=== PATIENT | female | born 2005 | race Caucasian/White ===

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

== ENCOUNTER 2023-01-31 02:11 | Emergency (ER) | payer MEDICAID, SELFPAY ==
[2023-01-31 02:11] VITALS: BP 107/63; PULSE 118; RESP 20; TEMP 37.5; O2SAT 99; BMI 24.5
--- NOTE | 2023-01-31 02:38 | RAD_ITS ---
INDICATION: fever EXAMINATION/TECHNIQUE: X-RAY - XR Chest 1 View COMPARISON: None. FINDINGS: LINES/DEVICES: None. LUNGS: No consolidation or evidence of an effusion. No evidence of edema or a pneumothorax. MEDIASTINUM AND CARDIOVASCULAR STRUCTURES: Cardiac silhouette is normal in size and contour. Mediastinum is unremarkable. BONES AND SOFT TISSUES: No acute abnormality. RAD/Chest 1 View (Portable) IMPRESSION: No evidence of cardiopulmonary disease. Electronically Signed: Luke Castellano DO at 4:02 EDT ,
--- NOTE | 2023-01-31 02:39 | EX.ED.DYSGE1 ---
HPI History of Present Illness Chief Complaint: Abd Pain Narrative Narrative: 17-year-old female who denies significant past medical history except for anxiety, presents with left side pain for 3 days. She states she was walking and all of a sudden she had pain in her left flank. It is worse with movement. Today/yesterday she developed fever as high as 105 point something. She states that she is taking 1 acetaminophen and 1 ibuprofen to help with pain and fever. She denies any dysuria or hematuria. Additionally, no cough or shortness of breath, but she does state that she has a stuffy nose. She is unsure as to why she has the fever but is complaining of 3 days of side pain and fever today. [facility] Medical History Anxiety Depression Home Medications acetaminophen 500 mg tablet 1,000 mg PO Q6H PRN PRN Pain 1-10 Or Fever #0 tabs 08/19/22 [Rx Last Taken Unknown] ibuprofen 600 mg tablet 600 mg PO Q6H PRN PRN Pain Score 1-3 #30 tabs 08/19/22 [Rx Last Taken Unknown] buspirone 7.5 mg tablet 7.5 mg PO DAILY PRN PRN mood stabilizer 01/31/23 [History Last Taken Unknown] lamotrigine 100 mg tablet 100 mg PO DAILY 01/31/23 [History Last Taken Unknown] Allergy/AdvReac Type Severity Reaction Status Date / Time acetaminophen [From Vicodin] AdvReac PT UNSURE Verified 08/17/22 01:00 OF REACTION hydrocodone [From Vicodin] AdvReac PT UNSURE Verified 08/17/22 01:00 OF REACTION Penicillins [PCN] AdvReac PT UNSURE Verified 08/17/22 01:00 OF REACTION Social History Smoking Status: Never smoker ROS ROS ED ROS Narrative Constitutional: Positive fever, no chills. HEENT: No sore throat. No neck pain. No loss of vision. No rhinorrhea. Nasal congestion. Cardiovascular: No chest pain. No palpitations. No pedal edema. Respiratory: No cough, no shortness of breath. Abdominal: No abdominal pain. No nausea. No vomiting. Genitourinary: No dysuria. No hematuria. Positive left flank pain, worse with movement. Musculoskeletal: No myalgias. No arthralgias. Neurologic: No headaches. No dizziness. No lightheadedness. Skin: No rash. No change in color. Psychiatric: No depression. No anxiety. EXAM Physical Exam Narrative Exam Narrative: Afebrile. Temperature 99.5 degrees, vital signs noted. HEENT: Normocephalic. Atraumatic. PERRL, EOMI. Neck soft and supple. No point tenderness or step off. Cardiovascular: Positive tachycardia no murmurs, rubs, or gallops appreciated. Respiratory: No tachypnea. Lungs clear to auscultation bilaterally. Gastrointestinal: Abdomen soft, nontender, with normoactive bowel sounds. No rebound or guarding. Neurological: Awake. Alert. Nonfocal, nonlateralizing. Skin: No rash. Normal color. No pallor. Musculoskeletal: No pedal edema. Full range of motion extremities. Const Vital Signs: 01/31/23 02:11 Temperature 99.5 F H Temperature Source Oral Pulse Rate 118 H Respiratory Rate 20 H Blood Pressure 107/63 Blood Pressure Mean 77 Pulse Ox 99 Oxygen Delivery Method Room Air MDM MDM MDM Narrative Medical decision making narrative: Suspicion is lower for ureterolithiasis, she does not have colicky pain. She is resting on the cot on her stomach, using her cellular telephone. She does have mild tachycardia and elevated temperature of 99.5. I will check a chest x-ray and a urinalysis along with a serum and baseline laboratories. I will obtain a COVID swab and influenza swab to look for signs of infection. I reviewed the patient's laboratory work she has normal white count of 8.5, hemoglobin 12.0, hematocrit 37.8, platelet count slightly low at 147 which I think is nonspecific. Potassium slightly low at 3.4, BUN normal at 9 with creatinine 0.67. Glucose is elevated at 140 but she has a normal anion gap of 5. Serum is negative. Her urinalysis is questionable with 5-10 WBCs and 10-25 RBCs. She states her flank pain has resolved. She feels well and would like to be discharged. I do not feel CT imaging is indicated currently. I will send her urine for culture as she is not having dysuria and withhold antibiotics until urine cultures return. Chest x-ray interpreted by myself shows no acute process, no pneumonia. I do not feel antibiotics are indicated for an upper respiratory infection. I reviewed her respiratory swabs and COVID and influenza are also negative. At this point in time, I am unsure as to the cause of her reported fever, but it may be an upper respiratory viral infection. I feel she can be discharged safely home with follow-up. I do not feel she requires observation. Return instructions were reviewed. Once again, I do not feel that CT of the abdomen pelvis is indicated as she is currently pain-free. Disposition is discharged home in stable condition. History & Record Review Discussion w/independent historian: Patient Additional record(s) reviewed:: Prior ED visit Lab Data Attestation: I reviewed the patient's lab results. Labs: Laboratory Results - last 24 hr 01/31/23 01/31/23 01/31/23 02:42 02:42 02:42 WBC 8.5 RBC 4.39 Hgb 12.0 Hct 37.8 MCV 86.1 MCH 27.3 MCHC 31.7 L RDW Std Deviation 42.6 RDW Coeff of [place] 13.4 Plt Count 147 L MPV 11.4 Immature Gran % (Auto) 0.500 Neut % (Auto) 84.3 H Lymph % (Auto) 5.4 L [place] % (Auto) 9.3 Eos % (Auto) 0.1 Baso % (Auto) 0.4 Absolute Neuts (auto) 7.2 Absolute Lymphs (auto) 0.46 L Nucleated RBC % 0 Differential Comment SCANNED Sodium 138 Potassium 3.4 L Chloride 105 Carbon Dioxide 28.0 Anion Gap 5 BUN 9 Creatinine 0.67 Estim Creat Clear Calc 131.33 Est GFR (MDRD) Af Amer 144 Est GFR (MDRD) Non-Af 119 BUN/Creatinine Ratio 13.4 Glucose 140 H Calcium 8.7 Serum , Qual NEGATIVE Urine Color Urine Clarity Urine pH Ur Specific [place] Urine Protein Urine Glucose (UA) Urine Ketones Urine Occult Blood Urine Nitrite Urine Bilirubin Urine Urobilinogen Ur Leukocyte Esterase Urine RBC Urine WBC Ur Squamous Epith Cells Urine Bacteria Urine Mucus 01/31/23 02:54 WBC RBC Hgb Hct MCV MCH MCHC RDW Std Deviation RDW Coeff of [place] Plt Count MPV Immature Gran % (Auto) Neut % (Auto) Lymph % (Auto) [place] % (Auto) Eos % (Auto) Baso % (Auto) Absolute Neuts (auto) Absolute Lymphs (auto) Nucleated RBC % Differential Comment Sodium Potassium Chloride Carbon Dioxide Anion Gap BUN Creatinine Estim Creat Clear Calc Est GFR (MDRD) Af Amer Est GFR (MDRD) Non-Af BUN/Creatinine Ratio Glucose Calcium Serum , Qual Urine Color Yellow Urine Clarity Sl. Cloudy Urine pH 6.5 Ur Specific [place] 1.010 Urine Protein 100 H Urine Glucose (UA) Normal Urine Ketones 15 H Urine Occult Blood 250 H Urine Nitrite Negative Urine Bilirubin Negative Urine Urobilinogen 1 H Ur Leukocyte Esterase 100 H Urine RBC 10-25 SEEN Urine WBC 5-10 SEEN Ur Squamous Epith Cells 0-5 SEEN Urine Bacteria RARE Urine Mucus 0 SEEN Radiography Diagnostic Testing: Clinical Impression(s) from Imaging Studies Chest X-Ray 01/31/23 02:38 IMPRESSION: No evidence of cardiopulmonary disease. Electronically Signed: Luke Castellano DO at 4:02 EDT Reading Location ID and State: [facility] / [place] Tel , Service support , Discharge Plan Triage Chief Complaint: Abd Pain ED Provider: Dennis Logan Dx/Rx/DC Orders Clinical Impression: Fever, Acute right flank pain Instructions: ED Fever Control (Adult), ED Pain, Acute, Uncertain Cause Prescriptions: No Action acetaminophen 500 mg Tablet 1,000 mg PO Q6H PRN PRN (Reason: Pain 1-10 Or Fever) Qty: 0 0RF ibuprofen 600 mg Tablet 600 mg PO Q6H PRN PRN (Reason: Pain Score 1-3) Qty: 30 0RF buspirone 7.5 mg tablet 7.5 mg PO DAILY PRN PRN (Reason: mood stabilizer) lamotrigine 100 mg tablet 100 mg PO DAILY Label Comments: take 1 tablet by mouth once daily Primary Care Provider: Arnel Townsend Referrals: Arnel Townsend MD [Primary Care Provider] - 3-5 Days if not improving Disposition Disposition: Home, Self Care
[2023-01-31 02:56] LABS: Absolute Lymphocyte Count 0.46 X10^3/uL (0.83-4.51); Absolute Neutrophil Count 7.2 X10^3/uL (2.0-7.7); Basophil# 0.03 X10^3/uL; Basophil% 0.4 % (0-1); Eosinophil# 0.01 X10^3/uL; Eosinophils% 0.1 % (0-5); Hematocrit 37.8 % (37-47); Lymphocyte # 0.46 X10^3/ul (0.83-4.51); Lymphocyte % 5.4 % (19-41); Mean Corp Hgb Conc 31.7 g/dL (32-36); Mean Corpuscular Hgb 27.3 pg (27.0-32.0); Mean Corpuscular Volume 86.1 fL (81-99); Mean Platelet Vol. 11.4 fl (6.2-12.0); Monocyte# 0.79 X10^3/uL; Monocyte% 9.3 % (0-10); NRBC Flagged by Analyzer 0 % (0-5); Neutrophil # 7.15 X10^3/uL (2.7-7.7); Neutrophil % 84.3 % (47-70); POSITIVE DIFFERENTIAL YES; Platelet Count 147 K/mm3 (150-450); RBC Distribution Width CV 13.4 % (11.6-14.6); RBC Distribution Width SD 42.6 fl (35.1-43.9); Red Blood Count 4.39 M/mm3 (4.2-5.4); White Blood Count 8.5 K/mm3 (4.4-11.0)
[2023-01-31 02:57] LABS: Differential Indicated SCAN CRITERIA MET
[2023-01-31 02:58] LABS: Mucous, Urine 0 SEEN /hpf (<or=2+)
[2023-01-31] MEDS: 0.9% Normal Saline 1,000 ML 1000 ML IV (03:01)
[2023-01-31 03:03] LABS: Color, Urine Yellow (Yellow); Glucose, Dipstick Normal (Normal); Ketone-Dipstick 15 mg/dl (Negative); Leukocyte Esterase-Dipstick 100 /ul (Negative); Nitrite-Dipstick Negative (Negative); Occult Blood-Urine 250 /ul (Negative); Protein-Dipstick 100 mg/dl (Negative); Urine Bilirubin Dipstick Negative (Negative); Urine Clarity Sl. Cloudy (Clear); Urine Urobilinogen 1 mg/dl (Normal); Urine pH 6.5 (5.0 - 8.0)
[2023-01-31 03:06] LABS: Anion Gap 5 (5-15); BUN 9 mg/dL (7-18); BUN/Creat Ratio 13.4 RATIO (10-20); Calcium,Total 8.7 mg/dL (8.5-10.1); Chloride 105 mmol/L (98-107); Creatinine, Serum 0.67 mg/dL (0.55-1.02); EST Glomerular Filtration Rate 119 mL/min (>60); Est Glom Filt Rate - Afr Amer 144 mL/min (>60); Estimated Creatinine Clearance 131.33 ml/min; Glucose 140 mg/dL (74-106); Potassium 3.4 mmol/L (3.5-5.1); Sodium Level 138 mmol/L (136-145)
[2023-01-31 03:16] LABS: Red Blood Cells-Urine 10-25 SEEN /hpf (0-5); Squamous Epithelial Cells - UA 0-5 SEEN /hpf (5-10); White Blood Cells 5-10 SEEN /hpf (0-5)
[2023-01-31 03:17] LABS: Bacteria RARE /hpf (None Seen)
[2023-01-31 03:24] LABS: Differential Comment SCANNED
[2023-01-31 03:25] LABS: Internal QC Validated? YES +Cl - CLEAR BKGD; Pregnancy, Serum, hCG Quali. NEGATIVE Negative
[2023-01-31 04:48] VITALS: PULSE 101; RESP 18; TEMP 37.7
== END 2023-01-31 04:50 | disposition home or self-care (01) ==
PROVIDERS: Emergency Provider Emergency Medicine; PCP Family Medicine; Visit Provider Emergency Medicine
DX: R50.9 Fever, unspecified (principal); R10.9 Unspecified abdominal pain; F41.9 Anxiety disorder, unspecified; F32.A Depression, unspecified; Z79.899 Other long term (current) drug therapy
CPT/HCPCS: 71045; 80048; 81001; 84703; 85025; 87428; 96360; 96361; 99283; J7030; A4216

== ENCOUNTER 2023-04-03 00:42 | Emergency (ER) | payer MEDICAID, SELFPAY ==
[2023-04-03 00:44] VITALS: BP 112/67; PULSE 129; RESP 16; TEMP 36.7; O2SAT 97; BMI 24.4
--- NOTE | 2023-04-03 01:10 | RAD_ITS ---
EXAM: XR LEFT ANKLE COMPLETE, 3 OR MORE VIEWS CLINICAL INDICATION: pain TECHNIQUE: Frontal, lateral and oblique views of the left ankle. COMPARISON: No relevant prior studies available. FINDINGS: BONES/JOINTS: Unremarkable. No acute fracture. No subluxation. Normal alignment. Preservation of the joint space. No sclerotic or destructive changes observed. SOFT TISSUES: Unremarkable. No soft tissue swelling or gas. No radiopaque foreign body. RAD/Ankle min 3 Views IMPRESSION: Negative left ankle x-rays. Electronically Signed: Van Ibrahim MD at 1:39 EDT ,
[2023-04-03] MEDS: Ibuprofen 600 MG Tablet PO (02:12)
--- NOTE | 2023-04-03 02:15 | EDS_ITS ---
HPI History of Present Illness Chief Complaint: Lower Extremity Injury Narrative Narrative: 17-year-old female presenting with left ankle pain is on the medial aspect. She states she fell off the counter while the police were trying to obtain her alcohol from her. States she was not sure if she will be able to ambulate on it so she had somebody help her. She denies any bruising, swelling. No history of fracture in this area before. She took nothing for pain prior to arrival. [facility] Medical History Anxiety Depression Home Medications acetaminophen 500 mg tablet 1,000 mg (2 x 500 mg) PO Q6H PRN PRN Pain 1-10 Or Fever #0 tabs 08/19/22 [Rx Last Taken Unknown] ibuprofen 600 mg tablet 600 mg PO Q6H PRN PRN Pain Score 1-3 #30 tabs 08/19/22 [Rx Last Taken Unknown] buspirone 7.5 mg tablet 7.5 mg PO DAILY PRN PRN mood stabilizer 01/31/23 [History Last Taken Unknown] lamotrigine 100 mg tablet 100 mg PO DAILY 01/31/23 [History Last Taken Unknown] Allergy/AdvReac Type Severity Reaction Status Date / Time acetaminophen [From Vicodin] AdvReac PT UNSURE Verified 04/03/23 00:44 OF REACTION hydrocodone [From Vicodin] AdvReac PT UNSURE Verified 04/03/23 00:44 OF REACTION Penicillins [PCN] AdvReac PT UNSURE Verified 04/03/23 00:44 OF REACTION Social History Smoking Status: Current every day smoker tobacco type: e-cigarettes ROS ROS ED Constitutional Constitutional ED: Denies chills, fever(s) or sweats Eyes Eyes: Denies blurry vision or change in vision ENT ENT ED: Denies ear pain or sore throat Cardiovascular Cardiovascular: Denies chest pain, palpitations or racing heartbeat Respiratory/Chest Respiratory/Chest: Denies cough, dyspnea or sputum Gastrointestinal Gastrointestinal: Denies abdominal pain, constipation, diarrhea, nausea or vomiting Genitourinary Genitourinary ED: Denies dysuria, hematuria or urinary frequency Musculoskeletal Musculoskeletal: Reports other Details: Left medial ankle pain ; Denies arthralgias, myalgias or neck pain Integumentary Denies abscess, Abrasions or rash Neurologic Neurologic: Denies headache(s), paresthesias or weakness Psychiatric Psychiatric: Denies anxiety, depression, suicidal ideation or suicidal thoughts Endocrine Endocrinology: Denies polydipsia or polyuria EXAM Physical Exam Const Vital Signs: 04/03/23 00:44 Temperature 98.1 F Temperature Source Temporal Pulse Rate 129 H Respiratory Rate 16 Blood Pressure 112/67 Blood Pressure Mean 82 Pulse Ox 97 Positive well nourished General Appearance ED: NAD HEENT Reports moist mucous membranes normocephalic and atraumatic Resp normal respiratory effort Cardio regular rate and regular rhythm Extremity Extremity Narrative: Tenderness palpation left medial malleolus. No obvious deformity, bruising, swelling, step-offs. Left foot neurovascular intact brisk refill to all 5 toes Neuro oriented x3 and CN's II-XII intact bilaterally Sensorium / Orientation: alert Motor Exam: strength 5/5 throughout Psych mental status grossly normal Skin no wounds MDM MDM MDM Narrative Medical decision making narrative: Patient with left ankle pain after falling off a counter. Differential includes ankle contusion versus ankle sprain versus ankle fracture. X-ray of the left ankle was obtained on my interpretation shows no acute fracture or subluxation. Patient states he is having pain with ambulation so I did put her in an Aircast and Ezio wrap. She does not want crutches. She is given ibuprofen in the ED and counseled on putting ibuprofen and Tylenol on outpatient setting. She is also to use ice and elevation. Return precautions discussed. Impression: 1. Mechanical fall 2. Left ankle contusion Radiography Diagnostic Testing: Clinical Impression(s) from Imaging Studies Ankle X-Ray 04/03/23 01:10 IMPRESSION: Negative left ankle x-rays. Electronically Signed: Van Ibrahim MD at 1:39 EDT , Discharge Plan Triage Chief Complaint: Lower Extremity Injury ED Provider: Hill Corona Dx/Rx/DC Orders Instructions: ED Contusion, Lower Extremity Prescriptions: No Action acetaminophen 500 mg Tablet 1,000 mg PO Q6H PRN PRN (Reason: Pain 1-10 Or Fever) Qty: 0 0RF ibuprofen 600 mg Tablet 600 mg PO Q6H PRN PRN (Reason: Pain Score 1-3) Qty: 30 0RF buspirone 7.5 mg tablet 7.5 mg PO DAILY PRN PRN (Reason: mood stabilizer) lamotrigine 100 mg tablet 100 mg PO DAILY Patient Comments: take 1 tablet by mouth once daily Primary Care Provider: Arnel Townsend Referrals: Arnel Townsend MD [Primary Care Provider] - Disposition Disposition: Home, Self Care Discharge Date/Time: 04/03/23 02:22
== END 2023-04-03 02:22 | disposition home or self-care (01) ==
PROVIDERS: Emergency Provider Student in an Organized Health Care Education/Training Program; PCP Family Medicine; Visit Provider Student in an Organized Health Care Education/Training Program
DX: S90.02XA Contusion of left ankle, initial encounter (principal); F17.290 Nicotine dependence, other tobacco product, uncomplicated; W19.XXXA Unspecified fall, initial encounter
CPT/HCPCS: 73610; 99283

== ENCOUNTER 2023-05-08 10:28 | Emergency (ER) | payer MEDICAID, SELFPAY ==
[2023-05-08 10:29] VITALS: BP 114/76; PULSE 95; RESP 14; TEMP 36.2; O2SAT 100; BMI 24.5
--- NOTE | 2023-05-08 10:59 | ED.RN ---
PT WAS YELLING AT MD PHYSICIAN. PT RUDE AND SWEARING. PT THEN WALKS OUT OF DEPARTMENT
--- NOTE | 2023-05-08 11:03 | EX.ED.DYSGE1 ---
HPI History of Present Illness Chief Complaint: Abd Pain Informant: patient Narrative Narrative: 17-year-old female presenting to the emergency room chief complaint of dizziness. Patient states for the past 2 weeks she is felt dizzy. She states that her mom was feeling her abdomen last night and found a heart rate in the 230s. She notes that she has been experiencing lower abdominal discomfort. Home test was negative. She states that this is the second time that has happened. When asked what dizziness means to her she states she cannot describe it. She denies a sense of spinning. She states that 2 weeks ago she had her Abilify increased. When asked direct questions to clarify the vague symptoms, the patient becomes increasingly agitated begins to curse. I asked her to please stop cursing at me and she stops but then begins to yell. I informed her that I would give her 5 minutes to collect herself and I be back to finish the evaluation. PFSH PFS Medical History Anxiety Depression Home Medications acetaminophen 500 mg tablet 1,000 mg (2 x 500 mg) PO Q6H PRN PRN Pain 1-10 Or Fever #0 tabs 08/19/22 [Rx Last Taken Unknown] ibuprofen 600 mg tablet 600 mg PO Q6H PRN PRN Pain Score 1-3 #30 tabs 08/19/22 [Rx Last Taken Unknown] buspirone 7.5 mg tablet 7.5 mg PO DAILY PRN PRN mood stabilizer 01/31/23 [History Last Taken Unknown] lamotrigine 100 mg tablet 100 mg PO DAILY 01/31/23 [History Last Taken Unknown] Allergy/AdvReac Type Severity Reaction Status Date / Time acetaminophen [From Vicodin] AdvReac PT UNSURE Verified 05/08/23 10:28 OF REACTION hydrocodone [From Vicodin] AdvReac PT UNSURE Verified 05/08/23 10:28 OF REACTION Penicillins [PCN] AdvReac PT UNSURE Verified 05/08/23 10:28 OF REACTION Social History Smoking Status: Former smoker ROS ROS ED Constitutional Constitutional ED: Denies chills or weight loss Eyes Eyes: Denies change in vision or diplopia ENT ENT ED: Denies ear pain, rhinorrhea or sore throat Cardiovascular Cardiovascular: Denies chest pain, orthopnea, palpitations or racing heartbeat Respiratory/Chest Respiratory/Chest: Denies cough, dyspnea or orthopnea Gastrointestinal Gastrointestinal: Reports abdominal pain and nausea; Denies diarrhea or vomiting Genitourinary Genitourinary ED: Denies dysuria, hematuria or urinary frequency Musculoskeletal Musculoskeletal: Denies arthralgias or myalgias Integumentary Denies abscess or rash Neurologic Neurologic: Reports other Details: Dizziness ; Denies headache(s), paresthesias or weakness Psychiatric Psychiatric: Denies anxiety, depression, suicidal ideation or suicidal thoughts Endocrine Endocrinology: Denies polydipsia, polyphagia or polyuria Allergic/Immunologic Allergic/Immunologic ED: Denies mouth swelling, tongue swelling or urticaria EXAM Physical Exam Const Vital Signs: 05/08/23 10:29 Temperature 97.1 F L Temperature Source Temporal Pulse Rate 95 Respiratory Rate 14 Blood Pressure 114/76 Blood Pressure Mean 88 Pulse Ox 100 Oxygen Delivery Method Room Air Positive well nourished and well developed General Appearance ED: well developed HEENT Reports normocephalic, head/scalp atraumatic and moist mucous membranes Eyes PERRL and EOMs intact bilaterally Neck Neck Narrative: Normal range of motion Resp normal respiratory effort GI Inspection: Negative for abdominal distention Back/Spine normal ROM Extremity normal to inspection General Extremety ED: Negative for edema General Extremity: Negative for edema Neuro oriented x3 and CN's II-XII intact bilaterally Sensorium / Orientation: alert Motor Exam: strength 5/5 throughout Psych Psych Narrative: Patient is angry cursing and yelling Attitude: agitated Mood & Affect: Negative for depressed or tearful Skin no rashes or lesions noted and no wounds MDM MDM MDM Narrative Medical decision making narrative: After I left the room to give the patient a few minutes to collect her thoughts and calm down she was observed leaving the emergency department dressed with her and baby. She stated that she is leaving because nobody will give her 5 minutes. Discharge Plan Triage Chief Complaint: Abd Pain Other Complaint: Dizziness ED Provider: Bernard Cunningham Dx/Rx/DC Orders Clinical Impression: Dizziness, Abdominal pain Prescriptions: No Action acetaminophen 500 mg Tablet 1,000 mg PO Q6H PRN PRN (Reason: Pain 1-10 Or Fever) Qty: 0 0RF ibuprofen 600 mg Tablet 600 mg PO Q6H PRN PRN (Reason: Pain Score 1-3) Qty: 30 0RF buspirone 7.5 mg tablet 7.5 mg PO DAILY PRN PRN (Reason: mood stabilizer) lamotrigine 100 mg tablet 100 mg PO DAILY Patient Comments: take 1 tablet by mouth once daily Primary Care Provider: Arnel Townsend Referrals: Arnel Townsend MD [Primary Care Provider] - Disposition Disposition: Elopement
--- NOTE | 2023-05-08 11:03 | ED.RN ---
Patient verbally abusive to staff and demanding with testing she would like to have completed. Patient concerned about her heartbeat in my stomach . Educated on anatomy of the human body and that this finding is normal. Patient verbalized understanding. States she is unable to make regular Dr. appointments due to the fact she cannot drive and is unable to go because she has no way there. Her and parents work and cannot take her.
--- NOTE | 2023-05-08 11:14 | ED.RN ---
Patient yelling out and rude with staff. Patient chose to leave AMA.Ambulatory from dept., gait steady.
--- OUTSIDE RECORDS SUMMARY | 2023-08-18 12:05 | XMS RPT_ITS | CCD ---
Author Name Unknown Address [address] [facility] [address] [place] [address] Organization [facility] Care Team Providers Care Test Deskman Name Role Phone Arnel Falcon Primary Care Provider Pawan Lopes MD Primary Care Provider ARNEL FALCON Primary Care Unavailabl e Unavailable Primary Care Provider Unavailabl e Unavailable Primary Care Provider Unavailabl e Unavailable Primary Care Provider Unavailabl e Kristian GRAY, Arnel Zhang Primary Care Provider ZANDER SALGADO Attending Unavailable ARNEL FALCON Primary Care Unavailable [...] Drug Allergy 10-23-19 21 Other (See Comments) [facility] (20 sources) Acetaminophen / HYDROcodone; Translations: [HYDROCODONE-ACET AMINOPHEN] Drug Allergy 05-30-20 20 Other: See Comments, Anaphylaxis, Other [place], [place] (3 sources) Penicillins; Translations: [PENICILLINS] Propensity to adverse reactions to drug 05-30-20 20 [place] (2 sources) Amoxicill-Clarith ro-Lansopraz Propensity to adverse reactions to drug 05-30-20 [place] (20 sources) traMADol; Translations: [TRAMADOL] Drug Allergy 09-02-19 Other: See Comments, Anaphylaxis, Other [place] (5 sources) Penicillins Drug Allergy 05-29-[address] [facility] (20 sources) Penicillins Drug Allergy 05-29-20 Unknown, GI Upset [facility] (5 sources) Penicillins Drug Allergy 05-30-20 Anaphylaxis, Unknown [facility] (5 sources) Amoxicil &Clarithro &Lansopraz Drug Intolerance 05-30-20 Anaphylaxis [facility] (4 sources) Acetaminophen Drug Allergy 04-03-20 [facility] Medications Current Medications Medication Drug Class(es) Dates [...] weight 73.94 kg Nurse Shanell Work Phone: [facility] 06-09-2023 16:09-0400 Diastolic blood pressure 60 mm[Hg] Nurse tr Work Phone: [facility] 06-09-2023 16:09-0400 Systolic blood pressure 100 mm[Hg] Nurse tr Work Phone: [facility] 04-05-2023 08:59-0400 Body mass index (BMI) [Ratio] 25.12 kg/m2 Zander Salgado ELECTRICAL CAD DESIGNER - PRODUCT BUILDER Work Phone: [facility] 04-05-2023 08:59-0400 Body temperature 98.91 [degF] Zander Salgado ELECTRICAL CAD DESIGNER - PRODUCT BUILDER Work Phone: [facility] 04-05-2023 08:59-0400 Body weight 71.67 kg Zander Bridenthal ELECTRICAL CAD DESIGNER - PRODUCT BUILDER Work Phone: [facility] [employer] 04-05-2023 08:59-0400 Diastolic blood pressure 68 mm[Hg] Zander Bridenthal ELECTRICAL CAD DESIGNER - PRODUCT BUILDER Work Phone: [facility] [employer] 04-05-2023 08:59-0400 Heart rate 89 /min Zander Bridenthal ELECTRICAL CAD DESIGNER - PRODUCT BUILDER Work Phone: [facility] [employer] 04-05-2023 08:59-0400 Respiratory rate 24 /min Zander Bridenthal ELECTRICAL CAD DESIGNER - PRODUCT BUILDER Work Phone: [facility] [employer] 04-05-2023 08:59-0400 SaO2% (BldA) [Mass fraction] 99 % Zander Bridenthal ELECTRICAL CAD DESIGNER - PRODUCT BUILDER Work Phone: [facility] [employer] 04-05-2023 08:59-0400 Systolic blood pressure 104 mm[Hg] Znader Bridenthal ELECTRICAL CAD DESIGNER - PRODUCT BUILDER Work Phone: [facility] 03-17-2023 16:21-0400 Body weight 68.95 kg Nurse Wstr Work Phone: [facility] 03-17-2023 16:21-0400 Diastolic blood pressure 62 mm[Hg] Nurse Wstr Work Phone: [facility] 03-17-2023 16:21-0400 Systolic blood pressure 110 mm[Hg] Nurse Wstr Work Phone: [facility] 11-03-2022 13:46-0400 Body weight 68.13 kg Loan Vega ELECTRICAL CAD DESIGNER.CNM Work Phone: [facility] 11-03-2022 13:46-0400 Diastolic blood pressure 62 mm[Hg] Loan Riversts ELECTRICAL CAD DESIGNER.CNM Work Phone: [facility] 11-03-2022 13:46-0400 Systolic blood pressure 108 mm[Hg] Loan Riversts ELECTRICAL CAD DESIGNER.CNM Work Phone: [facility] 09-22-2022 16:25-0500 Body weight 70.31 kg Michael Mejia MD Work Phone: [facility] 09-22-2022 16:25-0500 Diastolic blood pressure 62 mm[Hg] Michael Mejia MD Work Phone: [facility] 09-22-2022 16:25-0500 Systolic blood pressure 100 mm[Hg] Michael Mejia MD Work Phone: [facility] 08-24-2022 16:54-0500 Body weight 69.4 kg Loan Plotts ELECTRICAL CAD DESIGNER.CNM Work Phone: [facility] 08-24-2022 16:54-0500 Diastolic blood pressure 82 mm[Hg] Loan Plotts ELECTRICAL CAD DESIGNER.CNM Work Phone: [facility] 08-24-2022 16:54-0500 Systolic blood pressure 110 mm[Hg] Loan Plotts ELECTRICAL CAD DESIGNER.CNM Work Phone: [facility] 08-14-2022 15:25-0500 Body weight 76.2 kg Mirian Dick ELECTRICAL CAD DESIGNER.CNM Work Phone: [facility] 08-14-2022 15:25-0500 Diastolic blood pressure 66 mm[Hg] Mirian Dick ELECTRICAL CAD DESIGNER.CNM Work Phone: [facility] 08-14-2022 15:25-0500 Systolic blood pressure 110 mm[Hg] Mirian Dick ELECTRICAL CAD DESIGNER.CNM Work Phone: [facility] 08-06-2022 15:15-0500 Body weight 75.98 kg Addie Montenegro MD Work Phone: [facility] 08-06-2022 15:15-0500 Diastolic blood pressure 68 mm[Hg] Addie Montenegro MD Work Phone: [facility] 08-06-2022 15:15-0500 Systolic blood pressure 102 mm[Hg] Addie Montenegro MD Work Phone: [facility] 07-31-2022 16:37-0500 Body weight 75.75 kg Marilee Mayorga MD Work Phone: [facility] 07-31-2022 16:37-0500 Diastolic blood pressure 70 mm[Hg] Marilee Mayorga MD Work Phone: [facility] 07-31-2022 16:37-0500 Systolic blood pressure 116 mm[Hg] Marilee Mayorga MD Work Phone: [facility] 07-13-2022 14:09-0500 Body weight 75.21 kg Mirian Dick ELECTRICAL CAD DESIGNER.CNM Work Phone: [facility] 07-13-2022 14:09-0500 Diastolic blood pressure 60 mm[Hg] Mirian Dick ELECTRICAL CAD DESIGNER.CNM Work Phone: [facility] 07-13-2022 14:09-0500 Systolic blood pressure 118 mm[Hg] Mirian Dick ELECTRICAL CAD DESIGNER.CNM Work Phone: [facility] 2022 14:15-0500 Body weight 72.12 kg Addie Montenegro MD Work Phone: [facility] 2022 14:15-0500 Diastolic blood pressure 60 mm[Hg] Addie Montenegro MD Work Phone: [facility] 2022 14:15-0500 Systolic blood pressure 116 mm[Hg] Addie Montenegro MD Work Phone: [facility] 06-12-2022 16:30-0400 Body weight 70.76 kg Mirian Dick ELECTRICAL CAD DESIGNER.CNM Work Phone: [facility] 06-12-2022 16:30-0400 Diastolic blood pressure 68 mm[Hg] Mirian Dick ELECTRICAL CAD DESIGNER.CNM Work Phone: [facility] 06-12-2022 16:30-0400 Systolic blood pressure 110 mm[Hg] Mirian Dick ELECTRICAL CAD DESIGNER.CNM Work Phone: [facility] 05-15-2022 10:47-0400 Body weight 68.49 kg Jalyn Washington APRN.CNM Work Phone: [facility] 05-15-2022 10:47-0400 Diastolic blood pressure 59 mm[Hg] Jalyn Felix ELECTRICAL CAD DESIGNER.CNM Work Phone: [facility] 05-15-2022 10:47-0400 Heart rate 100 /min Jalyn Felix ELECTRICAL CAD DESIGNER.CNM Work Phone: [facility] 05-15-2022 10:47-0400 Systolic blood pressure 109 mm[Hg] Jalyn Felix ELECTRICAL CAD DESIGNER.CNM Work Phone: [facility] 05-07-2022 14:19-0400 Body weight 66.22 kg Lenka Au ELECTRICAL CAD DESIGNER.CNM Work Phone: [facility] 05-07-2022 14:19-0400 Diastolic blood pressure 62 mm[Hg] Lenka Au ELECTRICAL CAD DESIGNER.CNM Work Phone: [facility] 05-07-2022 14:19-0400 Heart rate 103 /min Lenka Au ELECTRICAL CAD DESIGNER.CNM Work Phone: [facility] 05-07-2022 14:19-0400 Systolic blood pressure 107 mm[Hg] Lenka Au ELECTRICAL CAD DESIGNER.CNM Work Phone: [facility] 04-09-2022 14:32-0400 Body weight 64.41 kg Lenka Au ELECTRICAL CAD DESIGNER.CNM Work Phone: [facility] 04-09-2022 14:32-0400 Diastolic blood pressure 55 mm[Hg] Lenka Au ELECTRICAL CAD DESIGNER.CNM Work Phone: [facility] 04-09-2022 14:32-0400 Heart rate 93 /min Lenka Au ELECTRICAL CAD DESIGNER.CNM Work Phone: [facility] 04-09-2022 14:32-0400 Systolic blood pressure 105 mm[Hg] Lenka Au ELECTRICAL CAD DESIGNER.CNM Work Phone: [facility] 03-25-2022 14:30-0400 Body weight 62.14 kg Ernie Gusman MD Work Phone: [facility] 03-12-2022 14:35-0400 Body weight 61.24 kg Lenka Au ELECTRICAL CAD DESIGNER.CNM Work Phone: [facility] 03-12-2022 14:35-0400 Diastolic blood pressure 66 mm[Hg] Lenka Au ELECTRICAL CAD DESIGNER.CNM Work Phone: [facility] 03-12-2022 14:35-0400 Heart rate 74 /min Lenka Au ELECTRICAL CAD DESIGNER.CNM Work Phone: [facility] 03-12-2022 14:35-0400 Systolic blood pressure 112 mm[Hg] Lenka Au ELECTRICAL CAD DESIGNER.CNM Work Phone: [facility] 02-12-2022 14:15-0400 Body weight 61.1 kg Lenka Au ELECTRICAL CAD DESIGNER.CNM Work Phone: [facility] 02-12-2022 14:15-0400 Diastolic blood pressure 59 mm[Hg] Lenka Au ELECTRICAL CAD DESIGNER.CNM Work Phone: [facility] 02-12-2022 14:15-0400 Heart rate 68 /min Lenka Au ELECTRICAL CAD DESIGNER.CNM Work Phone: [facility] 02-12-2022 14:15-0400 Systolic blood pressure 97 mm[Hg] Lenka Au ELECTRICAL CAD DESIGNER.CNM Work Phone: [facility] 01-29-2022 10:32-0400 Body height 170.2 cm Herve Veras DO Work Phone: [facility] 01-29-2022 10:32-0400 Body mass index (BMI) [Percentile] Per age and sex 41.99 % Herve Veras DO Work Phone: [facility] 01-29-2022 10:32-0400 Body weight 60.33 kg Herve Veras DO Work Phone: [facility] 01-29-2022 10:32-0400 Diastolic blood pressure 66 mm[Hg] Herve Veras DO Work Phone: [facility] 01-29-2022 10:32-0400 Heart rate 108 /min Herve Rito DO Work Phone: [facility] 01-29-2022 10:32-0400 Systolic blood pressure 107 mm[Hg] Herve Rito DO Work Phone: [facility] 01-01-2022 13:09-0400 Body height 170.2 cm Lenka Au APRN.CNM Work Phone: [facility] 01-01-2022 13:09-0400 Body mass index (BMI) [Percentile] Per age and sex 61.33 % Lenka Au APRN.CNM Work Phone: [facility] 01-01-2022 13:09-0400 Body weight 64.86 kg Lenka Au APRN.CNM Work Phone: [facility] 01-01-2022 13:09-0400 Diastolic blood pressure 51 mm[Hg] Lenka Au APRN.CNM Work Phone: [facility] 01-01-2022 13:09-0400 Heart rate 86 /min Lenka Au APRN.CNM Work Phone: [facility] 01-01-2022 13:09-0400 Systolic blood pressure 100 mm[Hg] Lenka Au APRN.CNM Work Phone: [facility] 12-31-2021 14:40-0400 Body height 170.2 cm Herve Rio Medina DO Work Phone: [facility] 12-31-2021 14:40-0400 Body mass index (BMI) [Percentile] Per age and sex 64.46 % Herve Rio Medina DO Work Phone: [facility] 12-31-2021 14:40-0400 Body weight 65.77 kg Herev Rito DO Work Phone: [facility] 12-31-2021 14:40-0400 Diastolic blood pressure 62 mm[Hg] Herve Rio Medina DO Work Phone: [facility] 12-31-2021 14:40-0400 Heart rate 77 /min Herve Rito DO Work Phone: [facility] 12-31-2021 14:40-0400 Systolic blood pressure 111 mm[Hg] Herve Veras DO Work Phone: [facility] 09-02-2020 03:00-0500 Body Temperature 98.29 [degF] [facility] [place] [place] 09-02-2020 03:00-0500 BP Diastolic 69 mm[Hg] [facility] [place] [facility] [place] 09-02-2020 03:00-0500 BP Systolic 104 mm[Hg] [facility] [place] [facility] [place] 09-02-2020 03:00-0500 Pulse (Heart Rate) 68 /min Tania [facility] [place] 09-02-2020 03:00-0500 Pulse Oximetry 100 % Tania Johnson [facility] [place] , [place] 09-02-2020 03:00-0500 Respiratory Rate 16 /min Tania [facility] [place] 05-30-2020 02:21-0400 BP Diastolic 66 mm[Hg] [facility] [place] [facility] [place] 05-30-2020 02:21-0400 BP Systolic 116 mm[Hg] [facility] [place] [facility] [place] 05-30-2020 02:21-0400 Pulse (Heart Rate) 76 /min Hill Johnson [facility] [place] 05-30-2020 02:21-0400 Respiratory Rate 13 /min Hill [facility] [place] 05-30-2020 00:36-0400 Body Temperature 96.01 [degF] [facility] [place] [place] 05-30-2020 00:36-0400 Height 170.2 cm Hill Johnson [facility] , [place] 05-30-2020 00:36-0400 Pulse Oximetry 100 % Hill Johnson [facility] , [place] Encounters Encounter Date Encounter Type Care Provider Facility Start: 07-13-2023 End: 07-14-2023 ambulatory MIRIAN DICK Facility:[facility] Start: 06-09-2023 End: 06-09-2023 ambulatory ADDIE MONTENEGRO Facility:[facility] Start: 06-09-2023 End: 06-09-2023 Nursing evaluation of patient and report Nurse Plastic Surgery Specialist [facility] Work Phone: OB/Gynecology Procedures Date Procedure Procedure Detail Performing Clinician Start: 04-05-2023 Complete blood count with white cell differential, automated Zander Bridenthal ELECTRICAL CAD DESIGNER - PRODUCT BUILDER Work Phone: Start: 04-05-2023 Comprehensive metabo lic panel Zander Bridenthal ELECTRICAL CAD DESIGNER - PRODUCT BUILDER Work Phone: Start: 03-17-2023 Urine test visual color cmprsn alannaarianna HullLoan Silvestrejoshua ELECTRICAL CAD DESIGNER.CNM Work Phone: Start: 08-14-2022 URINE OB DIP B/O Marielos Dick ELECTRICAL CAD DESIGNER.CNM Work Phone: Start: 08-06-2022 URINE OB DIP B/O Addie romero MD Work Phone: Start: 07-31-2022 URINE OB DIP B/O Marilee Mayorga MD Work Phone: Start: 07-13-2022 URINE OB DIP B/O Marielos Dick ELECTRICAL CAD DESIGNER.CNM Work Phone: Start: 2022 URINE OB DIP B/O Addie romero MD Work Phone: Start: 2022 Us preg uterus after 1st trimest 08/16 gestation Mirian Dick ELECTRICAL CAD DESIGNER.CNM Work Phone: Start: 06-12-2022 URINE OB DIP B/O Marielos Dick ELECTRICAL CAD DESIGNER.CNM Work Phone: Start: 05-15-2022 URINE OB DIP B/O Paty Washington ELECTRICAL CAD DESIGNER.CNM Work Phone: Start: 05-07-2022 URINE OB DIP B/O Lenka Au ELECTRICAL CAD DESIGNER.CNM Work Phone: Start: 03-25-2022 Us preg uterus after 1st trimest 08/16 gestation Arlene Khan MD Work Phone: Start: 03-12-2022 URINE OB DIP B/O Lenka Au ELECTRICAL CAD DESIGNER.CNM Work Phone: Start: 02-18-2022 Us nuchal translucency [...] Auto Different ial panel - Blood Nesha Bueno [facility] Work Phone: Start: 12-04-2020 Comprehensive metabo lic panel Nesha Bueno PRODUCT BUILDER Work Phone: Start: 12-04-2020 Lipid panel Nesha potts [facility] Work Phone: Start: 09-02-2020 Radex hand minimum 3 views Tania De La Cruz Work Phone: Start: 05-30-2020 Radex foot complete minimum 3 views Hill Coyne Work Phone: Start: 06-19-2018 Follow-up visit Plan of Treatment Date Care Activity Detail Author Start: 2053 Zoster Vaccines (1 of 2) Zoster Vaccines (1 of 2) [facility] Start: 03-27-2026 DTaP/Tdap/Td vaccine (6 - Td) DTaP/Tdap/Td vaccine (6 - Td) [facility] [place] Start: 03-27-2026 DTaP/Tdap/Td Vaccines (6 - Td or Tdap) DTaP/Tdap/Td Vaccines (6 - Td or Tdap) [facility] Start: 08-12-2026 Urine microalbumin profile DTaP,Tdap,Td Vaccine (6 - Td or Tdap) [facility] Start: 10-06-2023 Depresssion Monitoring Depresssion Monitoring [facility] Start: 07-24-2023 CHLAMYDIA SCREENING (18-24) CHLAMYDIA SCREENING (18-24) [facility] Start: 07-24-2023 GC (GONORRHEA) SCREENING (18-24) GC (GONORRHEA) SCREENING (18-24) [facility] Start: 05-15-2023 CHLAMYDIA SCREENING (18-24) CHLAMYDIA SCREENING (18-24) [facility] Start: 05-15-2023 GC (GONORRHEA) SCREENING (18-24) GC (GONORRHEA) SCREENING (18-24) [facility] Start: 04-16-[address] [facility] Start: 04-05-2023 End: 04-05-2024 CBC W Auto Differential panel - Blood CBC auto differential Lab Routine Nausea Expected: 04/05/2023 (Approximate), Expires: 04/05/2024 [facility] Immunizations Immunization Date Immunization Notes Care Provider Srinivasan acuña 03-27-2016 meningococcal oligosaccharide (groups A, C, Y and W-135) diphtheria toxoid conjugate vaccine (MCV4O) [facility] 03-27-2016 tetanus toxoid, redu lul diphtheria toxoid, and acellular pertussis vaccine, adsorbed [facility] 03-27-2016 meningococcal vaccin e of unknown formulation and unknown serogroups [facility], [place] 03-01-2013 Human Papillomavirus 9-valent vaccine [facility], [place] 03-01-2013 HPV, unspecified formulation Cristy Neff RN [facility] 07-18-2010 influenza, seasonal, injectable Cristy Neff RN [facility] 07-18-2010 influenza virus vacc ine, unspecified formulation Cristy Neff RN [facility] 08-06-2009 influenza virus vacc ine, live, attenuated, for intranasal use Cristy Neff RN [facility] 07-01-2009 novel Influenza-H1N1 -09, live virus for nasal administration Cristy Neff RN [facility] 05-24-2009 influenza virus vacc ine, live, attenuated, for intranasal use Cristy Neff RN [facility] 04-10-2009 hepatitis A vaccine, pediatric/adolescent dosage, 2 dose schedule Cristy Neff RN [facility] 04-10-2009 hepatitis A vaccine, unspecified formulation [facility] , [place] 01-30-2009 hepatitis B vaccine, pediatric or pediatric/adolescent dosage Cristy Neff RN [facility] 01-30-2009 hepatitis B vaccine, unspecified formulation [facility] , [place] 09-21-2008 diphtheria, tetanus toxoids and acellular pertussis vaccine [facility], [place] 09-21-2008 hepatitis A vaccine, pediatric/adolescent dosage, 2 dose schedule Cristy Neff RN [facility] 09-21-2008 hepatitis A vaccine, unspecified formulation [facility] , [place] 09-21-2008 hepatitis B vaccine, unspecified formulation [facility] , [place] 09-21-2008 measles, mumps and rubella virus vaccine [facility] 09-21-2008 poliovirus vaccine, inactivated [facility], [place] 08-03-2007 diphtheria, tetanus toxoids and acellular pertussis vaccine [facility] 08-03-2007 haemophilus influenz ae type b vaccine, PRP-OMP conjugate [facility] 08-03-2007 influenza, seasonal, injectable [facility]2007 measles, mumps and rubella virus vaccine [facility], [place] 08-03-2007 measles, mumps, rube lla, and varicella virus vaccine Cristy Neff [facility] 08-03-2007 poliovirus vaccine, inactivated [facility] 08-03-2007 varicella virus vaccine [facility], [place] 07-03-2004 varicella virus vaccine [facility] 04-10-2004 hepatitis B vaccine, pediatric or pediatric/adolescent dosage Cristy Neff [facility] 04-10-2004 hepatitis B vaccine, unspecified formulation [facility] , [place] 04-10-2004 pneumococcal conjuga te vaccine, 13 valent [facility], [place] 04-10-2004 pneumococcal conjuga te vaccine, 7 valent Cristy Neff RN [facility] 01-04-2004 diphtheria, tetanus toxoids and acellular pertussis vaccine [facility], [place] 01-04-2004 haemophilus influenz ae type b vaccine, PRP-OMP conjugate [facility] 01-04-2004 poliovirus vaccine, inactivated [facility] 2003 diphtheria, tetanus toxoids and acellular pertussis vaccine [facility] 2003 haemophilus influenz ae type b vaccine, PRP-OMP conjugate [facility] 2003 pneumococcal conjuga te vaccine, 13 valent [facility], [place] 2003 pneumococcal conjuga te vaccine, 7 valent Cristy Neff RN [facility] 2003 poliovirus vaccine, inactivated [facility] Payers Date Payer Category Payer Medicaid [employer] [facility] [id number] 2021-Present [phone] [address] [place] [address] Medicaid [id number] 2021 Medicaid [id number] 2021 Unknown [id number] 2020 [facility] Health [facility] [id number] 2020-Present [address] [place] [address] Medicaid [id number] 2015 Unknown [id number] 2003 Unknown [id number] Social History Date Type Detail Facility Start: 05-30-2020 End: 04-09-2022 Tobacco smoking status NHIS Never smoker [facility] Start: 05-30-2020 End: 04-09-2022 Tobacco use and exposure Never used [employer] Start: 05-30-2020 End: 04-05-2023 Alcohol intake Current non-drinker of alcohol (finding) Elizabeth [employer] [facility] Start: 2003 Sex Assigned At Not on file M nate [employer] [facility] Start: 12-21-2021 End: 04-05-2023 Exposure to SARS-CoV-2 (event) Not sure [employer] Start: 10-22-2020 Tobacco smoking status NHIS Unknown if ever smoked [facility] Start: 2003 Sex Assigned At Female [facility] Start: 11-28-2021 [facility] Start: 05-05-2022 End: 05-15-2022 Exposure to SARS-CoV-2 (event) Unable to assess [facility] Work Phone: Start: 03-17-2023 End: 04-13-2023 History of [address] function [facility] Start: 03-17-2023 End: 04-13-[address] [facility] The thought of harming myself has occurred to me Never [facility] National Score (1-100), lower number is lower risk 75 [facility] Start: 09-24-2021 Gender identity Identifies as female gender (finding) [facility] (I/We) worried whether (my/our) food would run [...] Type Note Facility 06-09-2023 Note HNO ID: [id number] Author: Laurie Heredia RN Service: ? Author Type: ? Type: Progress Notes Filed: 06/09/2023 4:25 PM Note Text: Patient identified by name and date of . Tiesha Echevarria is here for a Depo Provera injection. Patient brought medication. Date last injected: 03/17/2023 Depo-Provera, 150 mg, administered IM right deltoid, Lot # [id number], expiration date 04/2025. Depo-Provera was given without incident. Date of last menses: Patient's last menstrual period was 11/14/2021. Irregular bleeding - No Menses ceased - Yes Medication verified by dispensing pharmacist Patient instructed to return to clinic on 12 weeks. [email or web address]/clinic/contr aception/Depo-Provera%20dosing %20calendar.pdf Provider Zander Gardner MD was present in office at time of injection. Laurie Heredia RN [facility] 06-09-2023 History of Presen t illness Narrative Patient identified by name and date of . Tiesha Echevarria is here for a Depo Provera injection. Patient brought medication. Date last injected: 03/17/2023 Depo-Provera, 150 mg, administered IM right deltoid, Lot # [id number], expiration date 04/2025. Depo-Provera was given without incident. Date of last menses: Patient's last menstrual period was 11/14/2021. Irregular bleeding - No Menses ceased - Yes Medication verified by dispensing pharmacist Patient instructed to return to clinic on 12 weeks. [email or web address]/clinic/contr aception/Depo-Provera%20dosing %20calendar.pdf Provider Zander Gardner MD was present in office at time of injection. Laurie Heredia RN documented in this encounter [facility] 04-07-2023 History of Presen t illness Narrative Medication reconciliation documented in this encounter [facility] 04-05-2023 Evaluation + Plan note Associated Problem(s): Missed menses Check hcg. [facility] 04-05-2023 Miscellaneous Notes Associate d Problem(s): Missed menses Check hcg. Associated Problem(s): Nausea Unsure etiology. No concern for acute abdomen. Will check hcg, cbc, cmp. No abdominal pain, exam unremarkable.. Possibly 2/2 psych medications. Obtain ror for psychiatric provider to get updated medication list, and plan of care. Well hydrated, no acute distress. Provide antiemetic as needed for nausea. documented in this encounter [facility] 04-05-2023 Miscellaneous Notes Associate d Problem(s): Missed [...] Level of Service documented in this encounter [facility] 04-05-2023 Evaluation + Plan note Associated Problem(s): Nausea Unsure etiology. No concern for acute abdomen. Will check hcg, cbc, cmp. No abdominal pain, exam unremarkable.. Possibly 2/2 psych medications. Obtain ror for psychiatric provider to get updated medication list, and plan of care. Well hydrated, no acute distress. Provide antiemetic as needed for nausea. [facility] 04-05-2023 History of Presen t illness [...] completely known, states she sees psychiatry at [facility]. States that they recently made some [...] 04/05/2023 10:02 AM documented in this encounter [facility] 04-05-2023 History of Presen t illness Narrative [...] for as directed pending test results. SUBJECTIVE/OBJECTIVE: [facility] - Tiesha Echevarria (: 2005) is a [...] completely known, states she sees psychiatry at [facility] in [place]. States that they recently made some changes [...] 04/05/2023 10:02 AM documented in this encounter [facility] 04-05-2023 Note Addended by: ZANDER COTTO on: 04/12/2023 05:20 PM Modules accepted: Level of Service [facility] 04-05-2023 Telephone encount er Note Noted. Agree with disposition. [facility] 04-05-2023 Miscellaneous Notes Formattin g of this [...] fluid intake.) Protocols used: Weakness (Generalized) and [id number] documented in this encounter [facility] 04-05-2023 Telephone encount er Note S: pt [...] fluid intake.) Protocols used: Weakness (Generalized) and [id number] [facility] 04-05-2023 Telephone encount er Note Error [facility] 04-05-2023 Miscellaneous Notes Formattin g of this note might be different from the original. Error documented in this encounter [facility] 03-17-2023 Note HNO ID: [id number] Author: Carmen Loco LPN Service: ? Author Type: ? Type: Progress Notes Filed: 03/18/2023 9:21 AM Note Text: Patient identified by name and date of . Tiesha Echevarria is here for a Depo Provera injection. Patient brought medication. Date last injected: 12/15/2022 Depo-Provera, 150 mg, administered IM left deltoid, Lot # [id number], expiration date 08/2024. Depo-Provera was given without incident. Date of last menses: Patient's last menstrual period was 11/14/2021. Irregular bleeding - Yes Menses ceased - Yes STD prevention discussed: Yes Hcg negative Patient instructed to return to clinic in 12 weeks. [email or web address]/contr aception/Depo-Provera%20dosing %20calendar.pdf Provider Kena Vega was present in office at time of injection. Carmen Loco LPN [facility] 03-17-2023 History of Presen t illness Narrative Patient identified by name and date of . Tiesha Echevarria is here for a Depo Provera injection. Patient brought medication. Date last injected: 12/15/2022 Depo-Provera, 150 mg, administered IM left deltoid, Lot # [id number], expiration date 08/2024. Depo-Provera was given without incident. Date of last menses: Patient's last menstrual period was 11/14/2021. Irregular bleeding - Yes Menses ceased - Yes STD prevention discussed: Yes Hcg negative Patient instructed to return to clinic in 12 weeks. [email or web address]/clinic/contr aception/Depo-Provera%20dosing %20calendar.pdf Provider Kena Vega was present in office at time of injection. Carmen Loco LPN documented in this encounter [facility] 12-15-2022 Note HNO ID: [id number] Author: Mary Joe RN Service: ? Author Type: ? Type: Progress Notes Filed: 12/15/2022 4:36 PM Note Text: Patient identified by name and date of . Tiesha Echevarria is here for a Depo Provera injection. Patient brought medication. Date last injected: 09/22/2022 Depo-Provera, 150 mg, administered IM right deltoid, Lot # [id number], expiration date 09/15/2024. Depo-Provera was given without incident. Date of last menses: Patient's last menstrual period was 11/14/2021. Irregular bleeding - no Menses ceased - Yes STD prevention discussed: Yes Patient instructed to return to clinic on 12 weeks. [email or web address]/contr aception/Depo-Provera%20dosing %20calendar.pdf Provider Loan Vega was present in office at time of injection. Mary Joe RN [facility] 11-03-2022 Note HNO ID: [id number] Author: Loan Vega APRN.CNM Service: ? Author Type: Manual Control Auger Press Operator Type: Progress Notes Filed: 11/03/2022 3:41 PM [...] increases will notify office Loan Vega APRN.CNM [facility] 11-03-2022 History of Presen t illness Narrative [...] Loan Vega APRN.CNM documented in this encounter [facility] 10-30-2022 Miscellaneous Notes Formattin g of this [...] picture and send it to us via [employer]. Patient states we aren't willing to help [...] Lynn Hensley RN documented in this encounter [facility] 09-22-2022 Note HNO ID: [id number] Author: Michael Mejia MD Service: ? Author Type: Physician Type: Progress Notes Filed: 09/22/2022 5:01 PM Note Text: VISIT Tiesha Echevarria is a 17 year old year old here for visit. Delivery Summary: ROS/ Recovery: Feeding: Bottle feeding problems: None Menses since delivery: resolved Menstrual pattern prior to : Regular periods [place] since delivery: Not resumed Depression: admits to [...] harming myself has occurred to me. Never [place] Depression Scale Total 17 Feeling nervous, anxious [...] external genitalia normal, normal Bartholin's glands, urethra, Arispe's glands, no vulvar lesions, no cervical lesions, [...] counseling with her therapist (Nusrat Madden - [phone]). Reviewed SI AND HI precautions. Michael Mejia MD [facility] 09-22-2022 History of Presen t illness Narrative VISIT Tiesha Echevarria is a 17 year old year old here for visit. Delivery Summary: ROS/ Recovery: Feeding: Bottle feeding problems: None Menses since delivery: resolved Menstrual pattern prior to : Regular periods [place] since delivery: Not resumed Depression: admits to [...] harming myself has occurred to me. Never [place] Depression Scale Total 17 Feeling nervous, anxious [...] external genitalia normal, normal Bartholin's glands, urethra, Arispe's glands, no vulvar lesions, no cervical lesions, [...] counseling with her therapist (Nusrat Madden - [phone]). Reviewed SI & HI precautions. Michael Mejia MD documented in this encounter [facility] 08-24-2022 Note HNO ID: [id number] Author: Loan Vega APRN.CNM Service: ? Author Type: Manual Control Auger Press Operator Type: Progress Notes Filed: 08/24/2022 5:19 PM [...] issues Sleep: no sleep concerns, feels rested [place] since delivery: Not resumed Emotional support: Yes [...] needed Medical Decision Making Loan Vega APRN.CNM [facility] 08-24-2022 History of Presen t illness Narrative [...] issues Sleep: no sleep concerns, feels rested [place] since delivery: Not resumed Emotional support: Yes [...] Loan Vega APRN.CNM documented in this encounter [facility] 08-18-2022 Note HNO ID: [id number] Author: Yokasta Hair RN Service: ? Author Type: ? Type: Progress Notes Filed: 08/18/2022 11:31 AM Note Text: Patient delivered via by Dr. Montenegro on 08/17/22 at [facility]. See OB history. Yokasta Hair RN [facility] 08-18-2022 History of Presen t illness Narrative Patient delivered via by Dr. Montenegro on 08/17/22 at [facility]. See OB history. Yokasta Hair RN documented in this encounter [facility] 08-14-2022 Miscellaneous Notes Formattin g of this note might be different from the original. HADYEES: Tiesha Echevarria is a 17 year old [...] Mirian Dick APRN.CNM documented in this encounter [facility] 08-14-2022 Amy Bryan Cma - 08/14/2022 3:28 PM EST SEQUENTIAL SCREENINGS The [facility] offers sequential screenings for women who are [...] It will require an appointment with our staging technician. This is not an ultrasound performed [...] the above symptoms, contact our office at [phone] and ask to speak with a nurse. After hours, you can call doctors registry at [phone] OR call [facility] at [phone] and ask to have the doctor seed production field supervisor paged. If you consider this an emergency, dial 9-1-1 or go to your nearest emergency department. NEED HELP? Are you dealing with a violent or abusive relationship? Are you a victim of rape or sexual assult? Call [facility] ([place]) 24 hour Crisis Hotline: 576.730.1709 or 496-062-3626. MANUAL Your Guide to a Healthy manual is now on-line. Visit [email or web address] [email or web address] to download your free copy documented in this encounter [facility] 08-06-2022 Miscellaneous Notes Formattin g of this [...] Addie Montenegro DO documented in this encounter [facility] 08-06-2022 Instructions Cathryn Trinh MA - 08/06/2022 3:10 PM EST SEQUENTIAL SCREENINGS The [facility] offers sequential screenings for women who are [...] It will require an appointment with our staging technician. This is not an ultrasound performed [...] the above symptoms, contact our office at [phone] and ask to speak with a nurse. After hours, you can call doctors registry at [phone] OR call [facility] at [phone] and ask to have the doctor seed production field supervisor paged. If you consider this an emergency, dial 9--7 or go to your nearest emergency department. NEED HELP? Are you dealing with a violent or abusive relationship? Are you a victim of rape or sexual assult? Call [facility] ([place]) 24 hour Crisis Hotline: 593.999.3335 or 977-230-7773. MANUAL Your Guide to a Healthy manual is now on-line. Visit [email or web address] [email or web address] to download your free copy documented in this encounter [facility] 07-31-2022 Miscellaneous Notes Formattin g of this [...] Marilee Louis MD documented in this encounter [facility] 07-31-2022 Instructions Shannon Alvarenga Ma - 07/31/2022 4:33 PM EST SEQUENTIAL SCREENINGS The [facility] offers sequential screenings for women who are [...] It will require an appointment with our staging technician. This is not an ultrasound performed [...] the above symptoms, contact our office at [phone] and ask to speak with a nurse. After hours, you can call doctors registry at [phone] OR call [facility] at [phone] and ask to have the doctor seed production field supervisor paged. If you consider this an emergency, dial 9-1-5 or go to your nearest emergency department. NEED HELP? Are you dealing with a violent or abusive relationship? Are you a victim of rape or sexual assult? Call [facility] ([facility] 24 hour Crisis Hotline: 531.374.7210 or 144-624-8556. MANUAL Your Guide to a Healthy manual is now on-line. Visit [email or web address]/HealthyPre [email or web address] to download your free copy documented in this encounter [facility] 07-27-2022 Miscellaneous Notes Formattin g of this note might be different from the original. Patient notified Please notify patient that she does have a yeast infection. I would like her to use Monistat 7 (or generic) 1 of a applicator full every night for 7 nights. If symptoms do not improve please larry the office. Galina Kunz APRN.CNP documented in this encounter [facility] 07-13-2022 Miscellaneous Notes Formattin g of this [...] Mirian Dick APRN.CNM documented in this encounter [facility] 07-13-2022 Amy Bryan Cma - 07/13/2022 2:05 PM EST SEQUENTIAL SCREENINGS The [facility] offers sequential screenings for women who are [...] It will require an appointment with our staging technician. This is not an ultrasound performed [...] the above symptoms, contact our office at [phone] and ask to speak with a nurse. After hours, you can call doctors registry at [phone] OR call [facility] at [phone] and ask to have the doctor seed production field supervisor paged. If you consider this an emergency, dial 9-1-6 or go to your nearest emergency department. NEED HELP? Are you dealing with a violent or abusive relationship? Are you a victim of rape or sexual assult? Call [facility] ([place]) 24 hour Crisis Hotline: 416.351.7837 or 971-862-7637. MANUAL Your Guide to a Healthy manual is now on-line. Visit [email or web address] [email or web address] to download your free copy documented in this encounter [facility] 2022 Miscellaneous Notes Formattin g of this [...] Addie Montenegro DO documented in this encounter [facility] 2022 Instructions Cathryn Trinh MA - 2022 2:00 PM EST SEQUENTIAL SCREENINGS The [facility] offers sequential screenings for women who are [...] It will require an appointment with our staging technician. This is not an ultrasound performed [...] the above symptoms, contact our office at [phone] and ask to speak with a nurse. After hours, you can call doctors registry at [phone] OR call [facility] at [phone] and ask to have the doctor seed production field supervisor paged. If you consider this an emergency, dial 9-1-1 or go to your nearest emergency department. NEED HELP? Are you dealing with a violent or abusive relationship? Are you a victim of rape or sexual assult? Call [facility] ([place]) 24 hour Crisis Hotline: 706.516.5598 or 258-651-1980. MANUAL Your Guide to a Healthy manual is now on-line. Visit [email or web address] [email or web address] to download your free copy documented in this encounter [facility] 06-12-2022 Miscellaneous Notes Formattin g of this [...] weeks 3) Reviewed history, transfer from other [facility] midwifery group due to move. Provided information about [facility]. plan given. Info on CBE and BF. [...] 4 - Moderate documented in this encounter [facility] 06-12-2022 Instructions Mirian Dick APRN.CNM - 06/12/2022 4:30 PM EDT 1) [facility] Online Virtual Childbirth and Class. -Please call to register and for more information: [phone] 2) [facility] Online Childbirth Education, , and classes: [email or web address] 3) Here is a list of online childbirth education and resources. https://[employer]/ bnjuoa-jwddrnlxne-ovfcr-covid1 9-coronavirus/ https://evidencebasedbDopiosth.com /childbirth-class/ https://blissful-.[employer].com/p/empoweredmamasguide SIGNS AND SYMPTOMS OF LABOR 1. Contractions every 10 minutes or more often 2. Clear, pink, or brownish fluid (water) leaking from vagina 3. Feeling that baby is pushing down, pressure 4. Low, dull backache 5. Cramps that feel like a period 6. Cramps with or without diarrhea If you notice any of the above symptoms, contact our office at [phone] and ask to speak with a nurse. After hours, you can call doctors registry at [phone] OR call [facility] at [phone] and ask to have the doctor seed production field supervisor paged. If you consider this an emergency, dial 9-5 or go to your nearest emergency department. NEED HELP? Are you dealing with a violent or abusive relationship? Are you a victim of rape or sexual assult? Call [facility] ([place]) 24 hour Crisis Hotline: 904.327.5303 or 553-131-2031. MANUAL Your Guide to a Healthy manual is now on-line. Visit [email or web address]/HealthyPre gnancyGuide to download your free copy documented in this encounter [facility] 05-15-2022 Miscellaneous Notes Addended by: DEVI SOUZA on: 05/15/2022 04:22 PM Modules accepted: Orders documented in this encounter [facility] 05-15-2022 History of Presen t illness Narrative [...] Jalyn Washington APRN.CNM documented in this encounter [facility] 05-07-2022 Miscellaneous Notes Addended by: NABILA COPPOLA [...] for sleep. Will recheck urine tox at [place] Encouraged flu vaccine, she declined. Discussed FM, signs of PTL, cargo agent, BF and CBE classes. She is going to centering for the rest of her . Proof of letter provided today. Discussed self help and sleep habits and suggested she try benadryl but not to be used regularly for sleep. I spent a total of 20 minutes on the date of the service which included preparing to see the patient, hwqj-hy-cfhg patient care, completing clinical documentation, obtaining and/or reviewing separately obtained history, performing a medically appropriate examination, counseling and educating the patient/family/caregiver, and ordering medications, tests, or procedures. Lenka Au APRN.CNM Opened in error documented in this encounter [facility] 04-09-2022 Miscellaneous Notes Formattin g of this [...] which included preparing to see the patient, mubm-yu-dcut patient care, completing clinical documentation, obtaining and/or reviewing separately obtained history, performing a medically appropriate examination, counseling and educating the patient/family/caregiver, and ordering medications, tests, or procedures. Lenka Au APRN.CNM documented in this encounter [facility] 03-26-2022 History of Presen t illness Narrative Patient here for routine anatomy scan. See ultrasound report for details. Ernie Gusman MD documented in this encounter [facility] 03-12-2022 Miscellaneous Notes Addended by: NABILA COPPOLA [...] at the information I sent her regarding [facility] O: BP 112/66 Pulse 74 [...] which included preparing to see the patient, udni-uq-mrgi patient care, completing clinical documentation, obtaining and/or reviewing separately obtained history, performing a medically appropriate examination, counseling and educating the patient/family/caregiver and ordering medications, tests, or procedures. Lenka Au APRN.CNM documented in this encounter [facility] 02-12-2022 Miscellaneous Notes S: still having intermittent [...] Lenka Au APRN.CNM documented in this encounter [facility] documented as of this encounter (statuses as of 09/23/2022) [facility] History of Past illness Narrative* Problem Noted [...] of this encounter (statuses as of 10/30/2022) [facility] History of Past illness Narrative* Problem Noted [...] of this encounter (statuses as of 11/03/2022) [facility] History of Past illness Narrative* Problem Noted [...] of this encounter (statuses as of 03/18/2023) [facility] History of Past illness Narrative* Problem Noted [...] of this encounter (statuses as of 06/10/2023) [facility] History of Present illness Narrative* Herve Veras, - 01/29/2022 11:08 AM EDT This note was created using [employer]. Subjective Tiesha Echevarria is a 16 year old female. She comes to the clinic today accompanied by her mother whowas present for the entire office visit HPI patient is in her first trimester and has already seen the combat control manager however the patient has yet to get her initial lab work done. Encouraging her to do that. Could be done today at the [facility] in [place]. The patient comes in stating that her [...] tenderness or frontal sinus tenderness. Mouth/Throat: Lips: [place]. No lesions. Mouth: Mucous membranes are moist. [...] (Smoking) aged skin, bad teeth, risk of MT/CVA/Blood Clots/Cancer/; (Drugs) brain damage, risk of overdose/, [...] prescription has been provided as a helpful preflight mechanic or [place] 2. 11 weeks gestation of [...] meantime. Herve Veras DO [facility] Inst[facility]* Patient Instructions* Herve Veras DO - 01/29/2022 11:00 AM EDT 1. Continue with your OB/ Vault Cashier and get the baseline lab work 2. Plan on using the sumatriptan as directed; it is a nasal spray and works rather quickly 3. See again in 4 to 6 weeks for follow up if still in [place] [facility] Miscellaneous Notes* Telephone Encounter - Lidya Skinner - 01/05/2022 1:03 PM EDT Call placed to pt's only listed phone #[phone]. VM recording states phone belongs to Richard Mack. Vague VMM left asking for Tiesha to return call to office. Pt called back immediately and ID by name and . Pt reports this is her ph # but she cannot get previous manager concrete's name off VM recording. Pt reports Richard [...] 12:04 PM EDT fowarded to pete yeung java user interface developer * Telephone Encounter - Serina Toribio APRN.CNM - 01/05/2022 9:14 AM EDT Inform client that she is GBS pos by urine culture and will need abx during labor. Her count is lowso she will not need abx now if she is asymptomatic. Please let me know if she has urinary symptoms. Serina Toribio APRN.CNM documented in this encounter[facility] History of Present illness Narrative* Lenka Au [...] No Occupation: graduating high school this month Latter Day or heritage: No Would refuse blood transfusion [...] which included preparing to see the patient, lyoh-jj-dzjo patient care, completing clinical documentation, obtaining and/or reviewing separately obtained history, performing a medically appropriate examination, counseling and educating the pat ient/family/caregiver and ordering medications, tests, or procedures . Lenka Au APRN.CNM documented in this encounterSt. [facility] Instructions* Patient Instructions* Lenka Au APRN.CNM - 01/01/2022 1:17 PM EDT Please select the following link to access the [facility] Your Guide to a Healthy . [email or web address] [...] is right for you. There are both hvfb-sjg-tdjxjjf and prescription medicines that can be used if your nausea and vomiting are severe. Unbr-Zng-Uvjedlm Medication Vtnj-yzn-numpkwj medications for motion sickness should not be [...] after trying lifestyle and diet changes and fqwm-omf-ubuvfxf medications or you are vomiting frequently, you may need a prescription medication. There are several different prescription medicines that have been studied and found to be safe for you and your baby. Your health care provider can talk with you about these medicines. For More Information [facility] Nausea [facility] Vomiting Helpline [email or web address] documented in this encounterSt. [facility] History of Present illness Narrative* Herve Veras DO - 12/31/2021 4:16 PM EDT This note was created using Impermiumriter. Subjective Tiesha Echevarria is a 16 year [...] (Smoking) aged skin, bad teeth, risk of MT/CVA/Blood Clots/Cancer/; (Drugs) brain damage, risk of overdose/, [...] has been placed for obstetrics and the desk maker will plan to arrange for visits at the [facility] since there is bruising taking place at [facility] and not at [facility]. Other feature that came up today was that the patient will besometime in January moving to [place] and if we can establish care here perhaps our family services coordinator can recommend somebody in the [place] area [...] meantime. Herve Veras DO documented in this encounterSt. [facility] Instructions* Patient Instructions* Herve Veras DO - 12/31/2021 3:10 PM EDT 1. Congratulations- our testing today confirms your two home tests that you are approximately 6 to 7 weeks based on your last Menstrual period 2. I placed an order for you to see an OB Physician in our system documented in this encounterSt. [facility]* Diagnosis Less than 8 weeks gestation [...] state, incidental [facility] Diagnosis 12 weeks gestation of - Primary state, incidental Encounter for screening for maternal depression Complaint of feeling depressed [facility] Diagnosis Encounter for (NT) nuchal translucency scan- Primary Other specified screening 13 weeks gestation of state, incidental [facility]* Diagnosis Supervision of normal first , antepartum- Primary 16 weeks gestation of state, incidental [facility]* Diagnosis screening for malformation using ultrasonics- Primary Encounter for routine screening for malformation using ultrasonics 18 weeks gestation of state, incidental [facility] Diagnosis History of marijuana use- Primary [facility]* Diagnosis Supervision of normal first , antepartum- Primary 24 weeks gestation of state, incidental [facility]* Diagnosis Screening examination for sexually transmitted [...] of state, incidental [facility]* Diagnosis 32 weeks gestation of - Primary state, incidental Supervision of normal first , antepartum [facility] Diagnosis 34 weeks gestation of - Primary state, incidental [facility]* Diagnosis Supervision of normal first teen , third trimester- Primary 37 weeks gestation of state, incidental documented in this encounter [facility] note* Diagnosis 37 weeks gestation of - Primary state, incidental Supervision of normal first teen , third trimester documented in this encounter [facility] note* Diagnosis 39 weeks gestation of - Primary state, incidental documented in this encounter [facility] note* Diagnosis 2 weeks follow-up- Primary documented in this encounter [facility] note* Diagnosis care and examination- Primary Routine follow-up Bipolar depression (HCC) Bipolar I disorder, most recent episode (or current) depressed, unspecified Anxiety Anxiety state, unspecified documented in this encounter [facility] note* Diagnosis Uses Depo-Provera as primary control method- Primary Decidual cast Vaginal spotting Other specified noninflammatory disorder of vagina documented in this encounter [facility] note* Diagnosis Encounter for management and injection of depo-Provera- Primary Surveillance of other previously prescribed contraceptive method Uses Depo-Provera as primary control method documented in this encounter [facility] note* Diagnosis Nausea- Primary Nausea alone Missed menses documented in this encounter [facility] note* Diagnosis Nausea- Primary Nausea alone Missed menses documented in this encounter [facility] note* Diagnosis Encounter for management and injection of depo-Provera- Primary Surveillance of other previously prescribed contraceptive method documented in this encounter [facility] for referral (narrative)* Diagnostic Procedure Only (Routine) - Authorized Specialty Diagnoses / Procedures Referred By Sivakumar crews Referred To Contact [facility] Diagnoses 12 weeks gestation of Procedures NUCHAL TRANSLUCENCY WHI US NUCHAL TRANSLUCENCY 1ST GESTATION Lenka Au APRN.CNM [address] [place] [address] [facility] [address] [place] [address] Referral ID Status Reason Start Date Expiration Date Visits Requested Visits Authorized [id number] Authorized Auto-Generat ed Referral 02/12/2022 02/12/2023 1 1 [facility] for referral (narrative)* Diagnostic Procedure Only (Routine) - Authorized Specialty Diagnoses / Procedures Referred By Contac t Referred To Contact [facility] Diagnoses Encounter for (NT) nuchal translucency scan 13 weeks gestation of Procedures OBSTETRIC ULTRASOUND WHI US PREG UTERUS AFTER 1ST TRIMEST GESTATION Arlene Khan MD [address] [place] [address] [address] Referral ID Status Reason Start Date Expiration Date Visits Requested Visits Authorized [id number] Authorized Auto-Generat ed Referral 02/18/2022 02/18/2023 1 1 [facility] for referral (narrative)* Diagnostic Procedure Only (Routine) - Pending Review Specialty Diagnoses / Procedures Referred By Contac t Referred To Contact [facility] Diagnoses Supervision of normal first , antepartum Procedures OBSTETRIC ULTRASOUND WHI US PREG UTERUS AFTER 1ST TRIMEST GESTATION Lenka Au APRN.CNM [address] [place] [address] [address] Referral ID Status Reason Start Date Expiration Date Visits Requested Visits Authorized [id number] Pending Review Auto-Generat ed Referral 03/12/2022 03/12/2023 1 1 [facility] for referral (narrative)* Diagnostic Procedure Only (Routine) - Pending Review Specialty Diagnoses / Procedures Referred By Contac t Referred To Contact [facility] Diagnoses 26 weeks gestation of Procedures OBSTETRIC ULTRASOUND WHI US PREG UTERUS AFTER 1ST TRIMEST GESTATION Jalyn Washington APRN.CNM [address] [place] [address] [address] Referral ID Status Reason Start Date Expiration Date Visits Requested Visits Authorized [id number] Pending Review Auto-Generat ed Referral 05/15/2022 05/15/2023 1 1 [facility] for referral (narrative)* Diagnostic Procedure Only (Routine) - Authorized Specialty Diagnoses / Procedures Referred By Contac t Referred To Contact [facility] Diagnoses 30 weeks gestation of Uterine size-date discrepancy, third trimester Procedures OBSTETRIC ULTRASOUND WHI US PREG UTERUS AFTER 1ST TRIMEST GESTATION Mirian Dick APRN.CNM [address] [place] [address] [place] [phone] Referral ID Status Reason Start Date Expiration Date Visits Requested Visits Authorized [id number] Authorized Auto-Generat ed Referral 2 06/12/2023 1 1 [facility] for visit Narrative* Diagnostic Procedure Only (Routine) - Closed Specialty Diagnoses / Procedures Referred By Contac t Referred To Contact [facility] Diagnoses Encounter for (NT) nuchal translucency scan 13 weeks gestation of Procedures OBSTETRIC ULTRASOUND WHI US PREG UTERUS AFTER 1ST TRIMEST GESTATION Arlene Khan MD [address] [place] [address] [place] [phone] Referral ID Status Reason Start Date Expiration Date V isits Requested Visits Authorized [id number] Closed Auto-Generate d Referral 02/18/2022 02/18/[address] 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 Advance Directives and Living Will Power of Licensing Worker Documents on File Type Date Recorded Patient Job Service Consultant Expl anation Advance Directive(s) 11/19/2021 10:47 PM Advance Directive(s) 11/10/2021 3:37 PM Advance Directive(s) 10/02/2021 11:22 PM Advance Directive(s) 09/21/2021 7:31 PM Documents on File Type Date Recorded Patient Job Service Consultant Expl anation Advance Directive(s) 11/19/2021 10:47 PM Advance Directive(s) 11/10/2021 3:37 PM Advance Directive(s) 10/02/2021 11:22 PM Advance Directive(s) 09/21/2021 7:31 PM Discharge Instructions * Attachments The following attachments cannot be sent through Care Everywhere. * Bruises: Teen (Libyan) documented in this encounter* Attachments The following attachments cannot be sent through Care Everywhere. * Finger: Bruises: Pediatric (Libyan) documented in this encounter Assessments Diagnosis Contusion of right lesser toe(s) w/o damage to nail, init Diagnosis Contusion of right hand including fingers, initial encounter- Primary Paresthesias in right hand Disturbance of skin sensation Reason for Referral Specialty Diagnoses / Procedures Referred By Contac t Referred To Contact Obstetrics Diagnoses Less than 8 weeks gestation of Procedures CONSULT TO OBSTETRICS OFFICE/OUTPATIENT [facility] MDM 60-74 MINUTES Herve Veras, DO [address] [place] [address] Referral ID Status Reason Start Date Expiration Date Visits Requested Visits Authorized [id number] Authorized PCP Requested Referral Auto-Generate d Referral 12/31/2021 12/31/2022 1 1 Specialty Diagnoses / Procedures Referred By Contac t Referred To Contact [facility] Diagnoses Encounter for supervision of normal in teen primigravida, antepartum Procedures CYSTIC FIBROSIS PATHOGENIC VARIANT ANALYSIS CFTR GENE ANALYSIS COMMON VARIANTS Lenka Au APRN.CN [address] [place] [address] [facility] Functional [facility] [address] [place] [address] Referral ID Status Reason Start Date Expiration Date Visits Requested Visits Authorized [id number] Authorized PCP Requested Referral Auto-Generate d Referral 01/01/2022 04/01/2022 1 1 Specialty Diagnoses / Procedures Referred By Sivakumar crews Referred To Contact [facility] Diagnoses Less than 8 weeks gestation of Encounter for supervision of normal in teen primigravida, antepartum Procedures OBSTETRIC ULTRASOUND WHI US PREG UTERUS AFTER 1ST TRIMEST GESTATION Lenka Au APRN.VILMA [address] [place] [address] [facility] [address] [facility] [address] Referral ID Status Reason Start Date Expiration Date Visits Requested Visits Authorized [id number] Authorized Auto-Generat ed Referral 01/01/2022 01/01/2023 1 [...] DATE CREATED AUTHOR AUTHOR'S ORGANIZ ATION 09/03/2020 [facility] DATE CREATED AUTHOR AUTHOR'S ORGANIZ ATION 12/09/2020 [facility] DATE CREATED AUTHOR AUTHOR'S ORGANIZ ATION 08/03/2021 [facility] DATE CREATED AUTHOR AUTHOR'S ORGANIZ ATION 11/11/2021 [facility] DATE CREATED AUTHOR AUTHOR'S ORGANIZ ATION 11/22/2021 [facility] DATE CREATED AUTHOR AUTHOR'S ORGANIZ ATION 12/26/2021 [facility] DATE CREATED AUTHOR AUTHOR'S ORGANIZ ATION 04/13/2023 [facility] DATE CREATED AUTHOR AUTHOR'S ORGANIZ ATION 07/15/2023 [facility] Reason for Visit (unrecogniz ed section and content) Reason Comments Hand Injury Reason Comments Follow Up Would like to have p regnancy confirmed Specialty Diagnoses / Procedures Referred By Contac t Referred To Contact Obstetrics Diagnoses Less than 8 weeks gestation of Procedures CONSULT TO OBSTETRICS OFFICE/OUTPATIENT [facility] MDM 60-74 MINUTES Herve Veras, [address] [place] [address] Referral ID Status Reason Start Date Expiration Date V isits Requested Visits Authorized [id number] Closed PCP Requested Referral Auto-Generated Referral 12/31/2021 12/31/2022 1 1 Reason Comments UTI Reason Comments US Specialty Diagnoses / Procedures Referred By Contac t Referred To Contact [facility] Diagnoses Less than 8 weeks gestation of Encounter for supervision of normal in teen primigravida, antepartum Procedures OBSTETRIC ULTRASOUND WHI US PREG UTERUS AFTER 1ST TRIMEST GESTATION Lenka Au, ELECTRICAL CAD DESIGNER.CNM [address] [place] [address] [address] Referral ID Status Reason Start Date Expiration Date V isits Requested Visits Authorized [id number] Closed Auto-Generate d Referral 01/01/2022 01/01/2023 1 1 Reason Comments Headaches Reason Comments Care Reason Comments US Specialty Diagnoses / Procedures Referred By Contac t Referred To Contact [facility] Diagnoses 12 weeks gestation of Procedures NUCHAL TRANSLUCENCY WHI US NUCHAL TRANSLUCENCY 1ST GESTATION Lenka Au APRN.CNM [address] [place] [address] [address] Referral ID Status Reason Start Date Expiration Date V isits Requested Visits Authorized [id number] Closed Auto-Generate d Referral 02/12/2022 02/12/2023 1 1 Reason Onset Date Comments Care 06/12/2022 Specialty Diagnoses / Procedures Referred By Contac t Referred To Contact [facility] Diagnoses 30 weeks gestation of Uterine size-date discrepancy, third trimester Procedures OBSTETRIC ULTRASOUND WHI US PREG UTERUS AFTER 1ST TRIMEST GESTATION Mirian Dick, ELECTRICAL CAD DESIGNER.CNM [address] [place] [address] [address] Referral ID Status Reason Start Date Expiration Date V isits Requested Visits Authorized [id number] Closed Auto-Generate d Referral 06/12/2022 06/12/2023 1 [...] or prosecute any alcohol or drug abuse patient.[facility] the event this information is protected by the Federal Confidentiality of Alcohol and Drug Abuse Patient Records regulations: The Federal rules restrict any use of the information to criminally investigate or prosecute any alcohol or drug abuse patient.[facility] the event this information is protected by the Federal Confidentiality of Alcohol and Drug Abuse Patient Records regulations: The Federal rules restrict any use of the information to criminally investigate or prosecute any alcohol or drug abuse patient.[facility] the event this information is protected by the Federal Confidentiality of Alcohol and Drug Abuse Patient Records regulations: The Federal rules restrict any use of the information to criminally investigate or prosecute any alcohol or drug abuse patient.[facility]In the event this information is protected by the Federal Confidentiality of Alcohol and Drug Abuse Patient Records regulations: The Federal rules restrict any use of the information to criminally investigate or prosecute any alcohol or drug abuse patient.[facility]In the event this information is protected by the Federal Confidentiality of Alcohol and Drug Abuse Patient Records regulations: The Federal rules restrict any use of the information to criminally investigate or prosecute any alcohol or drug abuse patient.[facility]In the event this information is protected by the Federal Confidentiality of Alcohol and Drug Abuse Patient Records regulations: The Federal rules restrict any use of the information to criminally investigate or prosecute any alcohol or drug abuse patient.[facility] CampusIn the event this information is protected by the Federal Confidentiality of Alcohol and Drug Abuse Patient Records regulations: The Federal rules restrict any use of the information to criminally investigate or prosecute any alcohol or drug abuse patient.[facility]In the event this information is protected by the Federal Confidentiality of Alcohol and Drug Abuse Patient Records regulations: The Federal rules restrict any use of the information to criminally investigate or prosecute any alcohol or drug abuse patient.[facility] CampusIn the event this information is protected by the Federal Confidentiality of Alcohol and Drug Abuse Patient Records regulations: The Federal rules restrict any use of the information to criminally investigate or prosecute any alcohol or drug abuse patient.[facility]In the event this information is protected by the Federal Confidentiality of Alcohol and Drug Abuse Patient Records regulations: The Federal rules restrict any use of the information to criminally investigate or prosecute any alcohol or drug abuse patient.[facility]In the event this information is protected by the Federal Confidentiality of Alcohol and Drug Abuse Patient Records regulations: The Federal rules restrict any use of the information to criminally investigate or prosecute any alcohol or drug abuse patient.[facility] CampusIn the event this information is protected by the Federal Confidentiality of Alcohol and Drug Abuse Patient Records regulations: The Federal rules restrict any use of the information to criminally investigate or prosecute any alcohol or drug abuse patient.[facility]In the event this information is protected by the Federal Confidentiality of Alcohol and Drug Abuse Patient Records regulations: The Federal rules restrict any use of the information to criminally investigate or prosecute any alcohol or drug abuse patient.[facility]In the event this information is protected by the Federal Confidentiality of Alcohol and Drug Abuse Patient Records regulations: The Federal rules restrict any use of the information to criminally investigate or prosecute any alcohol or drug abuse patient.[facility]In the event this information is protected by the Federal Confidentiality of Alcohol and Drug Abuse Patient Records regulations: The Federal rules restrict any use of the information to criminally investigate or prosecute any alcohol or drug abuse patient.[facility]In the event this information is protected by the Federal Confidentiality of Alcohol and Drug Abuse Patient Records regulations: The Federal rules restrict any use of the information to criminally investigate or prosecute any alcohol or drug abuse patient.[facility] CampusIn the event this information is protected by the Federal Confidentiality of Alcohol and Drug Abuse Patient Records regulations: The Federal rules restrict any use of the information to criminally investigate or prosecute any alcohol or drug abuse patient.[facility]In the event this information is protected by the Federal Confidentiality of Alcohol and Drug Abuse Patient Records regulations: The Federal rules restrict any use of the information to criminally investigate or prosecute any alcohol or drug abuse patient.[facility]In the event this information is protected by the Federal Confidentiality of Alcohol and Drug Abuse Patient Records regulations: The Federal rules restrict any use of the information to criminally investigate or prosecute any alcohol or drug abuse patient.[facility]In the event this information is protected by the Federal Confidentiality of Alcohol and Drug Abuse Patient Records regulations: The Federal rules restrict any use of the information to criminally investigate or prosecute any alcohol or drug abuse patient.[facility]In the event this information is protected by the Federal Confidentiality of Alcohol and Drug Abuse Patient Records regulations: The Federal rules restrict any use of the information to criminally investigate or prosecute any alcohol or drug abuse patient.[facility]In the event this information is protected by the Federal Confidentiality of Alcohol and Drug Abuse Patient Records regulations: The Federal rules restrict any use of the information to criminally investigate or prosecute any alcohol or drug abuse patient.[facility] CampusIn the event this information is protected by the Federal Confidentiality of Alcohol and Drug Abuse Patient Records regulations: The Federal rules restrict any use of the information to criminally investigate or prosecute any alcohol or drug abuse patient.[facility]In the event this information is protected by the Federal Confidentiality of Alcohol and Drug Abuse Patient Records regulations: The Federal rules restrict any use of the information to criminally investigate or prosecute any alcohol or drug abuse patient.[facility]In the event this information is protected by the Federal Confidentiality of Alcohol and Drug Abuse Patient Records regulations: The Federal rules restrict any use of the information to criminally investigate or prosecute any alcohol or drug abuse patient.[facility] CampusIn the event this information is protected by the Federal Confidentiality of Alcohol and Drug Abuse Patient Records regulations: The Federal rules restrict any use of the information to criminally investigate or prosecute any alcohol or drug abuse patient.St. [facility] Care Teams (unrecognized sec tion and content) Test Deskman Relationship Specialty Start Date End Date Arnel Falcon MD [address] [place] [address] PCP - General 05/06/17 Test Deskman Relationship Specialty Start Date End Date Arnel Falcon MD [address] [place] [id number] PCP - General 05/06/17 Test Deskman Relationship Specialty Start Date End Date Arnel Falcon MD [address] [place] [id number] PCP - General 05/06/17 Test Deskman Relationship Specialty Start Date End Date Arnel Falcon MD [address] [place] [id number] PCP - General 05/06/17 FOR RECORDS PERTAINING [...] BE BASED ON THE PRIMARY CLINICAL RECORDS. [facility] [employer] [facility]. provides no warranty or guarantee of the accuracy or completeness of information in this document.
== END 2023-05-08 16:31 | disposition left against medical advice (07) ==
LOC: ED 08-18 10:25
PROVIDERS: Emergency Provider Emergency Medicine; PCP Family Medicine; Visit Provider Emergency Medicine
DX: R42 Dizziness and giddiness (principal); R10.9 Unspecified abdominal pain; Z87.891 Personal history of nicotine dependence
CPT/HCPCS: 99281; 99283

== ENCOUNTER 2023-05-08 10:29 | Emergency (ER) | payer MEDICAID, SELFPAY ==
--- OUTSIDE RECORDS SUMMARY | 2023-08-18 12:04 | XMS RPT_ITS | CCD ---
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 04-10-2004 pneumococcal conjuga te vaccine, 7 valent Cristy Neff RN [facility] 01-04-2004 diphtheria, tetanus toxoids and acellular pertussis vaccine [facility], [place] 01-04-2004 haemophilus influenz ae type b vaccine, PRP-OMP conjugate [facility] 01-04-2004 poliovirus vaccine, inactivated [facility] 2003 diphtheria, tetanus toxoids and acellular pertussis vaccine [facility] 2003 haemophilus influenz ae type b vaccine, PRP-OMP conjugate [facility] 2003 pneumococcal conjuga te vaccine, 13 valent [facility], [place] 2003 pneumococcal conjuga te vaccine, 7 valent Cristy Neff RN [facility] 2003 poliovirus vaccine, inactivated [facility] Payers Date Payer Category Payer Medicaid [employer] [facility] [id number] 2021-Present [phone] [address] [place] [address] Medicaid [id number] 2021 Medicaid [id number] 2021 Unknown [id number] 2020 Private Health Insurance [facility] [id number] 2020-Present [address] [place] [address] Medicaid [id number] 2015 Unknown [id number] 2003 Unknown [id number] Social History Date Type Detail Facility Start: 05-30-2020 End: 04-09-2022 Tobacco smoking status NHIS Never smoker [facility] Start: 05-30-2020 End: 04-09-2022 Tobacco use and exposure Never used [employer] [facility] Start: 05-30-2020 End: 04-05-2023 Alcohol intake Current non-drinker of alcohol (finding) [facility] [employer] [facility] Start: 2005 Sex Assigned At Not on file M nate [employer] [facility] Start: 12-21-2021 End: 04-05-2023 Exposure to SARS-CoV-2 (event) Not sure [facility] Start: 10-22-2020 Tobacco smoking status NHIS Unknown if ever smoked [facility] Start: 2003 Sex Assigned At Female C [facility] Start: 11-28-2021 [facility] Start: 05-05-2022 End: 05-15-2022 Exposure to SARS-CoV-2 (event) Unable to assess [facility] Work Phone: Start: 03-17-2023 End: 04-13-2023 History of Social function [facility] Start: 03-17-2023 End: 04-13-2023 Tobacco use panel [facility] The thought of harming myself has occurred to me Never [facility] National Score (1-100), lower number is lower risk 75 [facility] Start: 09-24-2021 Gender identity Identifies as female gender (finding) [facility] (I/We) worried whether (my/our) food would run out before (I/we) got money to buy more. Never true [facility] Goals Date Patient Goal Desired Activity /State Personal health goal Clinical Notes 12-31-2021 to 06-09-2023 Laurie Heredia RN - 06/09/2023 4:05 PM EDTReMONTSERRAT Fox CNP - 04/07/2023 4:34 PM EDTAssessment & Plan Note - MONTSERRAT Nazario CNP - 04/05/2023 10:01 AM EDT Note Date & Type Note Facility 06-09-2023 Note HNO ID: [id number] Author: Laurie Heredia RN Service: ? Author Type: ? Type: Progress Notes Filed: 06/09/2023 4:25 PM Note Text: Patient identified by name and date of . Tiesha Echevarria is here for a Depo Provera injection. Patient brought medication. Date last injected: 03/17/2023 Depo-Provera, 150 mg, administered IM right deltoid, Lot # [id number], expiration date 04/2025. Depo-Provera was given without incident. Date of last menses: Patient's last menstrual period was 11/14/2021. Irregular bleeding - No Menses ceased - Yes Medication verified by dispensing pharmacist Patient instructed to return to clinic on 12 weeks. [email or web address] [email or web address]-Provera%20dosing %20calendar.pdf Provider Zander Gardner MD was present in office at time of injection. Laurie Heredia RN [facility] 06-09-2023 History of Presen t illness Narrative Patient identified by name and date of . Tiesha Echevarria is here for a Depo Provera injection. Patient brought medication. Date last injected: 03/17/2023 Depo-Provera, 150 mg, administered IM right deltoid, Lot # [id number], expiration date 04/2025. Depo-Provera was given without incident. Date of last menses: Patient's last menstrual period was 11/14/2021. Irregular bleeding - No Menses ceased - Yes Medication verified by dispensing pharmacist Patient instructed to return to clinic on 12 weeks. [email or web address] [email or web address]-Provera%20dosing %20calendar.pdf Provider Zander Gardner MD was present in office at time of injection. Laurie Heredia RN documented in this encounter [facility] 04-07-2023 History of Presen t illness Narrative Medication reconciliation documented in this encounter [facility] 04-05-2023 Evaluation + Plan note Associated Problem(s): Missed menses Check hcg. [facility] 04-05-2023 Miscellaneous Notes Associate d Problem(s): Missed menses Check hcg. Associated Problem(s): Nausea Unsure etiology. No concern for acute abdomen. Will check hcg, cbc, cmp. No abdominal pain, exam unremarkable.. Possibly 2/2 psych medications. Obtain ror for psychiatric provider to get updated medication list, and plan of care. Well hydrated, no acute distress. Provide antiemetic as needed for nausea. documented in this encounter [facility] 04-05-2023 Miscellaneous Notes Associate d Problem(s): Missed menses Check hcg. Associated Problem(s): Nausea Unsure etiology. No concern for acute abdomen. Will check hcg, cbc, cmp. No abdominal pain, exam unremarkable.. Possibly 2/2 psych medications. Obtain ror for psychiatric provider to get updated medication list, and plan of care. Well hydrated, no acute distress. Provide antiemetic as needed for nausea. Addended by: ZANDER SALGADO on: 04/12/2023 05:20 PM Modules accepted: Level of Service documented in this encounter [facility] 04-05-2023 Evaluation + Plan note Associated Problem(s): Nausea Unsure etiology. No concern for acute abdomen. Will check hcg, cbc, cmp. No abdominal pain, exam unremarkable.. Possibly 2/2 psych medications. Obtain ror for psychiatric provider to get updated medication list, and plan of care. Well hydrated, no acute distress. Provide antiemetic as needed for nausea. [facility] 04-05-2023 History of Presen t illness Narrative Images from the original note were not included. 04/05/2023 Tiesha Echevarria (: 2005) is a 17 y.o. female , Established patient, here for evaluation of the following chief complaint(s): Fatigue (/), Blood Work, and Possible (Negative hcg at home-has doppler stating it was 130) ASSESSMENT/PLAN: 1. Nausea Assessment & Plan: Unsure etiology. No concern for acute abdomen. Will check hcg, cbc, cmp. No abdominal pain, exam unremarkable.. Possibly 2/2 psych medications. Obtain ror for psychiatric provider to get updated medication list, and plan of care. Well hydrated, no acute distress. Provide antiemetic as needed for nausea. Orders: - hCG, quantitative - CBC auto differential - Comprehensive metabolic panel - ondansetron ODT (Zofran-ODT) 4 MG disintegrating tablet; Take 1 tablet (4 mg) by mouth every 8 hours as needed for nausea or vomiting for up to 7 days., Starting Wed04/05/2023, Until Wed04/12/2023 at 2359, Normal 2. Missed menses Assessment & Plan: Check hcg. Follow up for as directed pending test results. SUBJECTIVE/OBJECTIVE: HPI - Tiesha Echevarria (: 2005) is a 17 y.o. female , Established patient, here for the evaluation of the following chief complaint(s): Fatigue (/), Blood Work, and Possible (Negative hcg at home-has doppler stating it was 130) Was a day late getting last dose of depo inj for contraceptive. Worried she is pregant. Does not have menses on depo. Has taken 5 urine tests at home that have been negative. 2 days of nausea, dizzy lightheaded, fatigued. No fever or chills. No abdominal pain. No vomiting.No dysuria. No pain. Medications- not completely known, states she sees psychiatry at [facility]. States that they recently made some changes in one of the medications with an increase, but she is not sure which one. Knows that she takes lamictal and klonopin, but does not know what else. States that if she is , she states that she would need/want an d/t her mental health and that she couldn't handle another right now. Denies SI/HI. Prior to Admission medications Medication Sig Start Date End Date Taking? Authorizing Provider clonazePAM (KlonoPIN) 0.5 MG tablet Take 1 tablet by mouth once a day, as needed 03/11/23 Yes Historical Provider, lamoTRIgine (LaMICtal) 100 MG tablet Take 1 tablet by mouth daily. 03/11/23 Yes Historical Provider, FLUoxetine (PROzac) 20 MG capsule Take 1 capsule (20 mg) by mouth daily. 10/09/22 12/08/22 Arnel Falcon MD Review of Systems Constitutional: Positive for activity change, appetite change and fatigue. Negative for chills, fever and unexpected weight change. HENT: Negative. Respiratory: Negative. Cardiovascular: Negative. Gastrointestinal: Positive for nausea. Negative for abdominal pain, blood in stool, constipation, diarrhea and vomiting. Genitourinary: Negative. Musculoskeletal: Negative. Neurological: Positive for dizziness. Negative for syncope, weakness and light-headedness. Psychiatric/Behavioral: Positive for agitation (this morning more than nomral forgot to take my medication this morning ). Negative for suicidal ideas. Vitals: 04/05/23 0859 BP: 104/68 Pulse: 89 Resp: 24 Temp: 37.2 C (98.9 F) TempSrc: Oral SpO2: 99% Weight: 158 lb (71.7 kg) Physical Exam Constitutional: General: She is not in acute distress. Appearance: Normal appearance. She is not ill-appearing. HENT: Head: Normocephalic and atraumatic. Right Ear: Tympanic membrane normal. Left Ear: Tympanic membrane normal. Mouth/Throat: Mouth: Mucous membranes are moist. Pharynx: Oropharynx is clear. No oropharyngeal exudate or posterior oropharyngeal erythema. Eyes: Conjunctiva/sclera: Conjunctivae normal. Cardiovascular: Rate and Rhythm: Normal rate and regular rhythm. Pulses: Normal pulses. Heart sounds: Normal heart sounds. Pulmonary: Effort: Pulmonary effort is normal. Breath sounds: Normal breath sounds. Abdominal: General: Abdomen is flat. Bowel sounds are normal. There is no distension. Palpations: Abdomen is soft. There is no mass. Tenderness: There is no abdominal tenderness. There is no guarding or rebound. Musculoskeletal: Right lower leg: No edema. Left lower leg: No edema. Skin: General: Skin is warm and dry. Neurological: Mental Status: She is alert and oriented to person, place, and time. An electronic signature was used to authenticate this note. MONTSERRAT Nazario CNP 04/05/2023 10:02 AM documented in this encounter [facility] 04-05-2023 History of Presen t illness Narrative Images from the original note were not included. 04/05/2023 Tiesha Echevarria (: 2005) is a 17 y.o. female , Established patient, here for evaluation of the following chief complaint(s): Fatigue (/), Blood Work, and Possible (Negative hcg at home-has doppler stating it was 130) ASSESSMENT/PLAN: 1. Nausea Assessment & Plan: Unsure etiology. No concern for acute abdomen. Will check hcg, cbc, cmp. No abdominal pain, exam unremarkable.. Possibly 2/2 psych medications. Obtain ror for psychiatric provider to get updated medication list, and plan of care. Well hydrated, no acute distress. Provide antiemetic as needed for nausea. Orders: - hCG, quantitative - CBC auto differential - Comprehensive metabolic panel - ondansetron ODT (Zofran-ODT) 4 MG disintegrating tablet; Take 1 tablet (4 mg) by mouth every 8 hours as needed for nausea or vomiting for up to 7 days., Starting 04/05/2023, Until Wed04/12/2023 at 2359, Normal 2. Missed menses Assessment & Plan: Check hcg. Follow up for as directed pending test results. SUBJECTIVE/OBJECTIVE: [facility] - Tiesha Echevarria (: 2005) is a 17 y.o. female , Established patient, here for the evaluation of the following chief complaint(s): Fatigue (/), Blood Work, and Possible (Negative hcg at home-has doppler stating it was 130) Was a day late getting last dose of depo inj for contraceptive. Worried she is pregant. Does not have menses on depo. Has taken 5 urine tests at home that have been negative. 2 days of nausea, dizzy lightheaded, fatigued. No fever or chills. No abdominal pain. No vomiting.No dysuria. No pain. Medications- not completely known, states she sees psychiatry at [facility] in [place]. States that they recently made some changes in one of the medications with an increase, but she is not sure which one. Knows that she takes lamictal and klonopin, but does not know what else. States that if she is , she states that she would need/want an d/t her mental health and that she couldn't handle another right now. Denies SI/HI. Prior to Admission medications Medication Sig Start Date End Date Taking? Authorizing Provider clonazePAM (KlonoPIN) 0.5 MG tablet Take 1 tablet by mouth once a day, as needed 03/11/23 Yes Historical Provider, lamoTRIgine (LaMICtal) 100 MG tablet Take 1 tablet by mouth daily. 03/11/23 Yes Historical Provider, FLUoxetine (PROzac) 20 MG capsule Take 1 capsule (20 mg) by mouth daily. 10/09/22 12/08/22 Arnel Falcon MD Review of Systems Constitutional: Positive for activity change, appetite change and fatigue. Negative for chills, fever and unexpected weight change. HENT: Negative. Respiratory: Negative. Cardiovascular: Negative. Gastrointestinal: Positive for nausea. Negative for abdominal pain, blood in stool, constipation, diarrhea and vomiting. Genitourinary: Negative. Musculoskeletal: Negative. Neurological: Positive for dizziness. Negative for syncope, weakness and light-headedness. Psychiatric/Behavioral: Positive for agitation (this morning more than nomral forgot to take my medication this morning ). Negative for suicidal ideas. Vitals: 04/05/23 0859 BP: 104/68 Pulse: 89 Resp: 24 Temp: 37.2 C (98.9 F) TempSrc: Oral SpO2: 99% Weight: 158 lb (71.7 kg) Physical Exam Constitutional: General: She is not in acute distress. Appearance: Normal appearance. She is not ill-appearing. HENT: Head: Normocephalic and atraumatic. Right Ear: Tympanic membrane normal. Left Ear: Tympanic membrane normal. Mouth/Throat: Mouth: Mucous membranes are moist. Pharynx: Oropharynx is clear. No oropharyngeal exudate or posterior oropharyngeal erythema. Eyes: Conjunctiva/sclera: Conjunctivae normal. Cardiovascular: Rate and Rhythm: Normal rate and regular rhythm. Pulses: Normal pulses. Heart sounds: Normal heart sounds. Pulmonary: Effort: Pulmonary effort is normal. Breath sounds: Normal breath sounds. Abdominal: General: Abdomen is flat. Bowel sounds are normal. There is no distension. Palpations: Abdomen is soft. There is no mass. Tenderness: There is no abdominal tenderness. There is no guarding or rebound. Musculoskeletal: Right lower leg: No edema. Left lower leg: No edema. Skin: General: Skin is warm and dry. Neurological: Mental Status: She is alert and oriented to person, place, and time. An electronic signature was used to authenticate this note. MONTSERRAT Nazario CNP 04/05/2023 10:02 AM documented in this encounter [facility] 04-05-2023 Note Addended by: ZANDER COTTO on: 04/12/2023 05:20 PM Modules accepted: Level of Service [facility] 04-05-2023 Telephone encount er Note Noted. Agree with disposition. [facility] 04-05-2023 Miscellaneous Notes Formattin g of this note might be different from the original. Noted. Agree with disposition. S: pt calling [facility] d/t fatigue B: Symptoms started 2-3 weeks A: Pt states has been having fatigue, dizziness, nauseated. States is able to get up and do normal adl's but feels she has to force herself to do anything. Is tired after a short time up. Dizziness has been intermittent when up and about. States has had hx of anemia in the past. Has been eating less. On depo but is concerned possible for . Home test is negative. Denies shortness of breath, palpitations, bloody black or tarry stools, vomiting or difficulty walking. Covid screening negative. R: insurance verified. Ashvin scheduled with Mi Salgado at 8:40 advised to bring insurance card id and medication list. Discussed fluids. Pt advised to call back with worsening of symptoms, concern or questions. Pt verbalized understanding. Reason for Disposition MODERATE weakness (i.e., interferes with work, school, normal activities) and cause unknown (Exceptions: Weakness with acute minor illness, or weakness from poor fluid intake.) Protocols used: Weakness (Generalized) and [id number] documented in this encounter [facility] 04-05-2023 Telephone encount er Note S: pt calling [facility] d/t fatigue B: Symptoms started 2-3 weeks A: Pt states has been having fatigue, dizziness, nauseated. States is able to get up and do normal adl's but feels she has to force herself to do anything. Is tired after a short time up. Dizziness has been intermittent when up and about. States has had hx of anemia in the past. Has been eating less. On depo but is concerned possible for . Home test is negative. Denies shortness of breath, palpitations, bloody black or tarry stools, vomiting or difficulty walking. Covid screening negative. R: insurance verified. Ashvin scheduled with Mi Salgado at 8:40 advised to bring insurance card id and medication list. Discussed fluids. Pt advised to call back with worsening of symptoms, concern or questions. Pt verbalized understanding. Reason for Disposition MODERATE weakness (i.e., interferes with work, school, normal activities) and cause unknown (Exceptions: Weakness with acute minor illness, or weakness from poor fluid intake.) Protocols used: Weakness (Generalized) and [id number] [facility] 04-05-2023 Telephone encount er Note Error [facility] 04-05-2023 Miscellaneous Notes Formattin g of this note might be different from the original. Error documented in this encounter [facility] 03-17-2023 Note HNO ID: [id number] Author: Carmen Loco LPN Service: ? Author Type: ? Type: Progress Notes Filed: 03/18/2023 9:21 AM Note Text: Patient identified by name and date of . Tiesha Echevarria is here for a Depo Provera injection. Patient brought medication. Date last injected: 12/15/2022 Depo-Provera, 150 mg, administered IM left deltoid, Lot # [id number], expiration date 08/2024. Depo-Provera was given without incident. Date of last menses: Patient's last menstrual period was 11/14/2021. Irregular bleeding - Yes Menses ceased - Yes STD prevention discussed: Yes Hcg negative Patient instructed to return to clinic in 12 weeks. [email or web address]-[email or web address] %[email or web address] Provider Kena Vega was present in office at time of injection. Carmen Loco LPN [facility] 03-17-2023 History of Presen t illness Narrative Patient identified by name and date of . Tiesha Echevarria is here for a Depo Provera injection. Patient brought medication. Date last injected: 12/15/2022 Depo-Provera, 150 mg, administered IM left deltoid, Lot # [id number], expiration date 08/2024. Depo-Provera was given without incident. Date of last menses: Patient's last menstrual period was 11/14/2021. Irregular bleeding - Yes Menses ceased - Yes STD prevention discussed: Yes Hcg negative Patient instructed to return to clinic in 12 weeks. [email or web address]-Provera%20dosing %20calendar.pdf Provider Kena Vega was present in office at time of injection. Carmen Loco LPN documented in this encounter [facility] 12-15-2022 Note HNO ID: [id number] Author: Mary Joe RN Service: ? Author Type: ? Type: Progress Notes Filed: 12/15/2022 4:36 PM Note Text: Patient identified by name and date of . Tiesha Echevarria is here for a Depo Provera injection. Patient brought medication. Date last injected: 09/22/2022 Depo-Provera, 150 mg, administered IM right deltoid, Lot # [id number], expiration date 09/15/2024. Depo-Provera was given without incident. Date of last menses: Patient's last menstrual period was 11/14/2021. Irregular bleeding - no Menses ceased - Yes STD prevention discussed: Yes Patient instructed to return to clinic on 12 weeks. [email or web address]-Provera%20dosing %20calendar.pdf Provider Loan Vega was present in office at time of injection. Mary Joe RN [facility] 11-03-2022 Note HNO ID: [id number] Author: Loan Vega APRN.CNM Service: ? Author Type: Life Insurance Actuary Type: Progress Notes Filed: 11/03/2022 3:41 PM Note Text: Stacie Echevarria is a 17 year old female who presents for problem visit of vaginal bleeding/passing a clot this past Wednesday. on 08/17/22. Received Depo Provera injection on 09/19/22. First intercourse since delivery was on 09/22/22 after Depo Provera injection. She started her period on 09/29/22 and continues to have light bleeding today. Patient's mother present today and convinced the blood clot was a 6-8 week old fetus and a miscarriage . Patient denies passing any further clots or cramping. REVIEW OF SYSTEMS Abdomen: No bloating, early satiety, indigestion, or increased flatulence. No abdominal pain, nausea, vomiting, diarrhea, or constipation. Bladder: No dysuria, gross hematuria, urinary frequency, urinary urgency, or incontinence. Breast: No breast lumps, nipple d/c, overlying skin changes, redness or skin retraction. Expanded ROS: N/A Allergies and current medication updated:Yes EXAM: LMP 09/29/22 GENERAL: pleasant, female in no apparent distress HEENT: Normocephalic and atraumatic NECK: Supple and full range of motion DERMATOLOGY: Normal and without lesions BREAST: deferred CHEST: Normal inspiratory effort ABDOMEN: Deferred PELVIC: Patient refused exam BIMANUAL: Patient refused exam NEURO: alert and oriented x3,exam grossly non-focaldeferred EXTREMITIES: normal ASSESSMENT/PLAN: 1. Uses Depo-Provera as primary control method - ICD9: V49.89, ICD10: Z78.9 (primary diagnosis) 2. 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 Vaginal spotting - ICD9: 623.8, ICD10: N93.9 Plan: Patient declines pelvic exam UA- HCG negative CBC Reviewed photo of blood clot- decidual cast- discussed with patient and mother Reviewed bleeding/ spotting with Depo Provera injections Support provided If bleeding increases will notify office Loan Vega APRN.CNM [facility] 11-03-2022 History of Presen t illness Narrative Stacie Echevarria is a 17 year old female who presents for problem visit of vaginal bleeding/passing a clot this past Wednesday. on 08/17/22. Received Depo Provera injection on 09/19/22. First intercourse since delivery was on 09/22/22 after Depo Provera injection. She started her period on 09/29/22 and continues to have light bleeding today. Patient's mother present today and convinced the blood clot was a 6-8 week old fetus and a miscarriage . Patient denies passing any further clots or cramping. REVIEW OF SYSTEMS Abdomen: No bloating, early satiety, indigestion, or increased flatulence. No abdominal pain, nausea, vomiting, diarrhea, or constipation. Bladder: No dysuria, gross hematuria, urinary frequency, urinary urgency, or incontinence. Breast: No breast lumps, nipple d/c, overlying skin changes, redness or skin retraction. Expanded ROS: N/A Allergies and current medication updated:Yes EXAM: LMP 09/29/22 GENERAL: pleasant, female in no apparent distress HEENT: Normocephalic and atraumatic NECK: Supple and full range of motion DERMATOLOGY: Normal and without lesions BREAST: deferred CHEST: Normal inspiratory effort ABDOMEN: Deferred PELVIC: Patient refused exam BIMANUAL: Patient refused exam NEURO: alert and oriented x3,exam grossly non-focaldeferred EXTREMITIES: normal ASSESSMENT/PLAN: 1. Uses Depo-Provera as primary control method - ICD9: V49.89, ICD10: Z78.9 (primary diagnosis) 2. 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 Vaginal spotting - ICD9: 623.8, ICD10: N93.9 Plan: Patient declines pelvic exam UA- HCG negative CBC Reviewed photo of blood clot- decidual cast- discussed with patient and mother Reviewed bleeding/ spotting with Depo Provera injections Support provided If bleeding increases will notify office Loan Vega APRN.CNM documented in this encounter [facility] 10-30-2022 Miscellaneous Notes Formattin g of this note might be different from the original. Patient called and notified of below. Bleeding precautions reviewed. Patient became very angry on the phone and told this nurse that we are uneducated and don't know what we are talking about. States that her mother went to school to be a nurse and states that clots looks like a baby. Offered patient an appointment next week to discuss as no available appointments today or she may take a picture and send it to us via [employer]. Patient states we aren't willing to help and and will just go to the ER. Lynn Hensley RN Please just give bleeding precautions. Sometimes clots and spotting is normal after Depo injections. Loan Vega APRN.CNM Patient calling with concerns that she just passed a large blood clot around 7 am. Patient states she showed her mother and her mother told her to call the office because mother states she thinks its a baby. Clot was larger than a golf ball, but smaller than a baseball. Patient had on 08/17/22, and was started on the Depo Provera injection for control on 09/22. Patient states however she did not wait to have unprotected intercourse and had sex two days after her first injection. Patient states she did take 2 tests in September with the last one being on 10/08 and both tests were negative. Patient states she has had spotting since her injection, but 2 days ago bleeding picked up and she has been going through 3-4 pads a day. Patient also having some cramping that she rates at a 2-3/10. Lynn Hensley RN documented in this encounter [facility] 09-22-2022 Note HNO ID: [id number] Author: Michael Mejia MD Service: ? Author Type: Physician Type: Progress Notes Filed: 09/22/2022 5:01 PM Note Text: VISIT Tiesha Echevarria is a 17 year old year old here for visit. Delivery Summary: ROS/ Recovery: Feeding: Bottle feeding problems: None Menses since delivery: resolved Menstrual pattern prior to : Regular periods Mescal since delivery: Not resumed Depression: admits to symptoms of depression. She states her anxiety is making her depressed. She has a counselor and is waiting to see a psychiatrist to get meds. Denies SI/HI. OB Depression and Anxiety Screening- This Encounter (since 09/21/2022) Over the past 2 weeks have you felt down, depressed, or hopeless? Positive - Further Testing Indicated I have been able to laugh and see the funny side of things. Definitely not so much now I have looked forward with enjoyment to things. Rather less than I used to I have blamed myself unnecessarily when things went wrong. Yes, some of the time I have been anxious or worried for no good reason. Yes, very often I have felt scared or panicky for no good reason. Yes, sometimes Things have been getting on top of me. Yes, most of the time I haven't been able to cope at all I have been so unhappy that I have had difficulty sleeping. Not very often I have felt sad or miserable. Yes, quite often I have been so unhappy that I have been crying. Only occasionally The thought of harming myself has occurred to me. Never [place] Depression Scale Total 17 Feeling nervous, anxious or on edge 3-Nearly every day Not being able to stop or control worrying 0-Not al all Anxiety Pre-Screening Total (If >/= 3 additional questions will be reviewed) 3 Emotional support: Yes Bowel symptoms: Negative for abdominal discomfort, blood in stools or black stools and change in bowel habits Abdomen: N/A Bladder symptoms: No dysuria, gross hematuria, urinary frequency, urinary urgency, or incontinence Other issues: None PAST MEDICAL HISTORY Diagnosis Date Generalized anxiety disorder No past surgical history on file. FAMILY HISTORY Problem Relation Age of Onset Cervical Cancer Mother 17 LEEP Social History Tobacco Use Smoking status: Never Smokeless tobacco: Never Vaping Use Vaping Use: Some days Substance Use Topics Drug use: Yes Types: Marijuana Comment: occasionally PHYSICAL EXAMINATION: LMP 11/14/2021 GENERAL: pleasant, female in no apparent distress HEENT: Normocephalic, atraumatic, mucus membranes moist, and no lesions NECK: Supple, full range of motion, no adenopathy, and thyroid normal DERMATOLOGY: Normal, without lesions, non-icteric, and non-hirsute BREAST: soft, non-tender, symmetric, no dominant mass, normal nipple-areolar complex, no lymphadenopathy, and no nipple discharge CHEST: Normal inspiratory effort ABDOMEN: soft, non-tender, and no masses. INCISION: N/A PELVIC: external genitalia normal, normal Bartholin's glands, urethra, Miller'S Cove's glands, no vulvar lesions, no cervical lesions, good vaginal support, physiologic discharge present, normal appearing perineal body and perianal region BIMANUAL: uterus normal size, shape and consistency, no adnexal masses, and non-tender NEURO: alert and oriented x3,exam grossly non-focal EXTREMITIES: normal ASSESSMENT AND PLAN: 17 year old status post with normal course. Contraception plan: Depo Provera Follow up: Depression with anxiety AND h/o bipolar. Consult placed as patient needs psychiatrist. Continue counseling with her therapist (Nusrat Madden - [phone]). Reviewed SI AND HI precautions. Michael Mejia MD [facility] 09-22-2022 History of Presen t illness Narrative VISIT Tiesha Echevarria is a 17 year old year old here for visit. Delivery Summary: ROS/ Recovery: Feeding: Bottle feeding problems: None Menses since delivery: resolved Menstrual pattern prior to : Regular periods Mescal since delivery: Not resumed Depression: admits to symptoms of depression. She states her anxiety is making her depressed. She has a counselor and is waiting to see a psychiatrist to get meds. Denies SI/HI. OB Depression and Anxiety Screening- This Encounter (since 09/21/2022) Over the past 2 weeks have you felt down, depressed, or hopeless? Positive - Further Testing Indicated I have been able to laugh and see the funny side of things. Definitely not so much now I have looked forward with enjoyment to things. Rather less than I used to I have blamed myself unnecessarily when things went wrong. Yes, some of the time I have been anxious or worried for no good reason. Yes, very often I have felt scared or panicky for no good reason. Yes, sometimes Things have been getting on top of me. Yes, most of the time I haven't been able to cope at all I have been so unhappy that I have had difficulty sleeping. Not very often I have felt sad or miserable. Yes, quite often I have been so unhappy that I have been crying. Only occasionally The thought of harming myself has occurred to me. Never [place] Depression Scale Total 17 Feeling nervous, anxious or on edge 3-Nearly every day Not being able to stop or control worrying 0-Not al all Anxiety Pre-Screening Total (If >/= 3 additional questions will be reviewed) 3 Emotional support: Yes Bowel symptoms: Negative for abdominal discomfort, blood in stools or black stools and change in bowel habits Abdomen: N/A Bladder symptoms: No dysuria, gross hematuria, urinary frequency, urinary urgency, or incontinence Other issues: None PAST MEDICAL HISTORY Diagnosis Date Generalized anxiety disorder No past surgical history on file. FAMILY HISTORY Problem Relation Age of Onset Cervical Cancer Mother 17 LEEP Social History Tobacco Use Smoking status: Never Smokeless tobacco: Never Vaping Use Vaping Use: Some days Substance Use Topics Drug use: Yes Types: Marijuana Comment: occasionally PHYSICAL EXAMINATION: LMP 11/14/2021 GENERAL: pleasant, female in no apparent distress HEENT: Normocephalic, atraumatic, mucus membranes moist, and no lesions NECK: Supple, full range of motion, no adenopathy, and thyroid normal DERMATOLOGY: Normal, without lesions, non-icteric, and non-hirsute BREAST: soft, non-tender, symmetric, no dominant mass, normal nipple-areolar complex, no lymphadenopathy, and no nipple discharge CHEST: Normal inspiratory effort ABDOMEN: soft, non-tender, and no masses. INCISION: N/A PELVIC: external genitalia normal, normal Bartholin's glands, urethra, Miller'S Cove's glands, no vulvar lesions, no cervical lesions, good vaginal support, physiologic discharge present, normal appearing perineal body and perianal region BIMANUAL: uterus normal size, shape and consistency, no adnexal masses, and non-tender NEURO: alert and oriented x3,exam grossly non-focal EXTREMITIES: normal ASSESSMENT AND PLAN: 17 year old status post with normal course. Contraception plan: Depo Provera Follow up: Depression with anxiety & h/o bipolar. Consult placed as patient needs psychiatrist. Continue counseling with her therapist (Nusrat Madden - [phone]). Reviewed SI & HI precautions. Michael Mejia MD documented in this encounter [facility] 08-24-2022 Note HNO ID: [id number] Author: Loan Vega APRN.CNM Service: ? Author Type: Life Insurance Actuary Type: Progress Notes Filed: 08/24/2022 5:19 PM Note Text: EARLY VISIT Tiesha Echevarria is a 17 year old here for 2 week visit. Delivery Summary: 08/17/22- labial laceration SW ROS: General: Denies any fever or chills Hypertension Screening: Headache? No. Visual Changes? No Epigastric Pain? No Increased Swelling? No Taking any BP medications at home? No If applicable, monitoring BP at home? (If Yes, include results) NA Mood: normal Depression: denies symptoms of depression. OB Depression and Anxiety Screening- This Encounter (since 08/23/2022) None Feeding: Bottle feeding problems: None Bladder: No dysuria, gross hematuria, urinary frequency, urinary urgency, or incontinence Bowel symptoms: Negative for abdominal discomfort, blood in stools or black stools and change in bowel habits Abdomen: N/A Bleeding: light flow Bottom and Perineum: No issues Sleep: no sleep concerns, feels rested Mescal since delivery: Not resumed Emotional support: Yes Exercise: N/A Other issues: None PHYSICAL EXAMINATION: LMP 11/14/2021 General: pleasant,female in no apparent distress, AANDO x 3. Skin warm and intact. Breast: Deferred Abdomen: Deferred /Incision: N/A Pelvic: Deferred Bimanual: Deferred ASSESSMENT AND PLAN: 17 year old status post with normal course. Contraception plan: not applicable. Reinforced 6-week pelvic rest. Encouraged condom usage should patient deviate. Education: resources provided - see MA/RN note 4. Depo Provera- Rx sent- patient desires to start injections ANEL. No intercourse until after next visit with physical exam. Follow up: Return to Clinic for 6 week visit and as needed Medical Decision Making Loan Vega APRN.CNM [facility] 08-24-2022 History of Presen t illness Narrative EARLY VISIT Tiesha Echevarria is a 17 year old here for 2 week visit. Delivery Summary: 08/17/22- labial laceration SW ROS: General: Denies any fever or chills Hypertension Screening: Headache? No. Visual Changes? No Epigastric Pain? No Increased Swelling? No Taking any BP medications at home? No If applicable, monitoring BP at home? (If Yes, include results) NA Mood: normal Depression: denies symptoms of depression. OB Depression and Anxiety Screening- This Encounter (since 08/23/2022) None Feeding: Bottle feeding problems: None Bladder: No dysuria, gross hematuria, urinary frequency, urinary urgency, or incontinence Bowel symptoms: Negative for abdominal discomfort, blood in stools or black stools and change in bowel habits Abdomen: N/A Bleeding: light flow Bottom and Perineum: No issues Sleep: no sleep concerns, feels rested Mescal since delivery: Not resumed Emotional support: Yes Exercise: N/A Other issues: None PHYSICAL EXAMINATION: LMP 11/14/2021 General: pleasant,female in no apparent distress, A&O x 3. Skin warm and intact. Breast: Deferred Abdomen: Deferred /Incision: N/A Pelvic: Deferred Bimanual: Deferred ASSESSMENT AND PLAN: 17 year old status post with normal course. Contraception plan: not applicable. Reinforced 6-week pelvic rest. Encouraged condom usage should patient deviate. Education: resources provided - see MA/RN note 4. Depo Provera- Rx sent- patient desires to start injections ANEL. No intercourse until after next visit with physical exam. Follow up: Return to Clinic for 6 week visit and as needed Medical Decision Making Loan Vega APRN.CNM documented in this encounter [facility] 08-18-2022 Note HNO ID: [id number] Author: Yokasta Hair RN Service: ? Author Type: ? Type: Progress Notes Filed: 08/18/2022 11:31 AM Note Text: Patient delivered via by Dr. Montenegro on 08/17/22 at [facility]. See OB history. Yokasta Hair RN [facility] 08-18-2022 History of Presen t illness Narrative Patient delivered via by Dr. Montenegro on 08/17/22 at [facility]. See OB history. Yokasta Hair RN documented in this encounter [facility] 08-14-2022 Miscellaneous Notes Formattin g of this note might be different from the original. HAYDEES: Tiesha Echevarria is a 17 year old female who presents at 39w0d with HAL:08/21/2022, by Last Menstrual Period for a routine visit. Good FM. Denies headache, visual changes, chest pain, shortness of breath, vaginal bleeding, leakage of fluid, or dysuria. Feeling well, no complaints. O: See flow sheet Gen: No apparent distress Abd: Gravid, nontender S=D, 25 lb TWG, vertex ASSESSMENT/PLAN: 1. 39 weeks gestation of P: 1) Labor instructions reviewed and when to call 2) RTO in one week 3) Reviewed IOL vs expectant management. Reviewed indications for induction and elective vs. Medical necessity. At this time, patient would like to await spontaneous labor and declines IOL. Offered membrane sweep, patient declined. Mirian Dick APRN.CNM documented in this encounter [facility] 08-14-2022 Amy Bryan Cma - 08/14/2022 3:28 PM EST SEQUENTIAL SCREENINGS The [facility] offers sequential screenings for women who are interested in screenings for chromosomal abnormalities and certain defects during a . The sequential screen combines ultrasound and blood tests to determine the risk of chromosomal abnormalities, including Down's Syndrome (Trisomy 21) and Trisomy 18, as well as open neural tube defects including spina bifida. Ultrasound examination is performed between 11 weeks and 13 weeks gestational age. Blood tests are drawn after the ultrasound and again later in the between 15 and 21 weeks gestational age. Please let your physician know if you are interested in this testing. It will require an appointment with our greenhouse technician. This is not an ultrasound performed by a physician in our office during a routine visit. SIGNS AND SYMPTOMS OF LABOR 1. Contractions every 10 minutes or more often 2. Clear, pink, or brownish fluid (water) leaking from vagina 3. Feeling that baby is pushing down, pressure 4. Low, dull backache 5. Cramps that feel like a period 6. Cramps with or without diarrhea If you notice any of the above symptoms, contact our office at [phone] and ask to speak with a nurse. After hours, you can call doctors registry at [phone] OR call [facility] at [phone] and ask to have the doctor refrigeration plant operator paged. If you consider this an emergency, dial 9-1-1 or go to your nearest emergency department. NEED HELP? Are you dealing with a violent or abusive relationship? Are you a victim of rape or sexual assult? Call [facility] ([place]) 24 hour Crisis Hotline: 421.121.7677 or 316-526-6022. MANUAL Your Guide to a Healthy manual is now on-line. Visit [email or web address] to download your free copy documented in this encounter [facility] 08-06-2022 Miscellaneous Notes Formattin g of this note might be different from the original. SW- Pt doing well. No ctx, vb, lof. Good FM PE: Gen- NAD, well appearing Abd- Soft, gravid, NT, +FHT Ext- No edema See flowsheet A/p 37 wk gestation - GBS bacteruria: Clarified and she does NOT have a PCN allergy. Family h/o PCN allergy and intolerance with GI upset. Allergies updated - Pt asking about IOL. Discussed option for elective IOL around 39-40 weeks if favorable cervical exam - Weekly visits Addie Montenegro DO documented in this encounter [facility] 08-06-2022 Instructions Cathryn Trinh MA - 08/06/2022 3:10 PM EST SEQUENTIAL SCREENINGS The [facility] offers sequential screenings for women who are interested in screenings for chromosomal abnormalities and certain defects during a . The sequential screen combines ultrasound and blood tests to determine the risk of chromosomal abnormalities, including Down's Syndrome (Trisomy 21) and Trisomy 18, as well as open neural tube defects including spina bifida. Ultrasound examination is performed between 11 weeks and 13 weeks gestational age. Blood tests are drawn after the ultrasound and again later in the between 15 and 21 weeks gestational age. Please let your physician know if you are interested in this testing. It will require an appointment with our greenhouse technician. This is not an ultrasound performed by a physician in our office during a routine visit. SIGNS AND SYMPTOMS OF LABOR 1. Contractions every 10 minutes or more often 2. Clear, pink, or brownish fluid (water) leaking from vagina 3. Feeling that baby is pushing down, pressure 4. Low, dull backache 5. Cramps that feel like a period 6. Cramps with or without diarrhea If you notice any of the above symptoms, contact our office at [phone] and ask to speak with a nurse. After hours, you can call doctors registry at [phone] OR call [facility] at [phone] and ask to have the doctor refrigeration plant operator paged. If you consider this an emergency, dial 9--7 or go to your nearest emergency department. NEED HELP? Are you dealing with a violent or abusive relationship? Are you a victim of rape or sexual assult? Call [facility] ([place]) 24 hour Crisis Hotline: 189.515.5367 or 085-802-6360. MANUAL Your Guide to a Healthy manual is now on-line. Visit [email or web address] to download your free copy documented in this encounter [facility] 07-31-2022 Miscellaneous Notes Formattin g of this note might be different from the original. DM-Pt doing well. Denies vaginal Bleeding, Leaking fluid, or regular Contractions. Pt reports good movement. Pt feel more bipolar . She was very argumentative today at appt. Father was with her and also told her to calm down and listen. Physical Exam: Gen: female in no apparent distress Abd: soft, Gravid. Non tender to palpation. See flow sheet A/P: @ 37 weeks 1) pt asking to be induced- told her we do not perform elective IOL until 39 weeks- can perform cervical exam next visit and discuss further then 2) reviewed proper use of monistat 7 3) kick counts and labor reviewed 4) RTO 1 week Marilee Louis MD documented in this encounter [facility] 07-31-2022 Instructions Shannon Alvarenga Ma - 07/31/2022 4:33 PM EST SEQUENTIAL SCREENINGS The [facility] offers sequential screenings for women who are interested in screenings for chromosomal abnormalities and certain defects during a . The sequential screen combines ultrasound and blood tests to determine the risk of chromosomal abnormalities, including Down's Syndrome (Trisomy 21) and Trisomy 18, as well as open neural tube defects including spina bifida. Ultrasound examination is performed between 11 weeks and 13 weeks gestational age. Blood tests are drawn after the ultrasound and again later in the between 15 and 21 weeks gestational age. Please let your physician know if you are interested in this testing. It will require an appointment with our greenhouse technician. This is not an ultrasound performed by a physician in our office during a routine visit. SIGNS AND SYMPTOMS OF LABOR 1. Contractions every 10 minutes or more often 2. Clear, pink, or brownish fluid (water) leaking from vagina 3. Feeling that baby is pushing down, pressure 4. Low, dull backache 5. Cramps that feel like a period 6. Cramps with or without diarrhea If you notice any of the above symptoms, contact our office at [phone] and ask to speak with a nurse. After hours, you can call doctors registry at [phone] OR call [facility] at [phone] and ask to have the doctor refrigeration plant operator paged. If you consider this an emergency, dial 9-1-5 or go to your nearest emergency department. NEED HELP? Are you dealing with a violent or abusive relationship? Are you a victim of rape or sexual assult? Call [facility] ([facility] 24 hour Crisis Hotline: 589.623.8654 or 830-378-6447. MANUAL Your Guide to a Healthy manual is now on-line. Visit [email or web address] to download your free copy documented in this encounter [facility] 07-27-2022 Miscellaneous Notes Formattin g of this note might be different from the original. Patient notified Please notify patient that she does have a yeast infection. I would like her to use Monistat 7 (or generic) 1 of a applicator full every night for 7 nights. If symptoms do not improve please larry the office. Galina Kunz APRN.CNP documented in this encounter [facility] 07-13-2022 Miscellaneous Notes Formattin g of this note might be different from the original. PRAVEEN-S: Tiesha Echevarria is a 17 year old female who presents at 08/21/2022, by Last Menstrual Period for a routine visit. Good FM. Denies headache, visual changes, chest pain, shortness of breath, vaginal bleeding, leakage of fluid, or dysuria. Feeling well, no complaints. O: See flow sheet Gen: No apparent distress Abd: Gravid, nontender S<D, 22lb TWG ASSESSMENT/PLAN: 1. 34 weeks gestation of P: 1) PTL precautions reviewed and when to call 2) RTO in 2 weeks 3) Growth US 70th percentile, RICARDO 13.1 at 32 weeks Mirian Dick APRN.CNM documented in this encounter [facility] 07-13-2022 Amy Bryan Cma - 07/13/2022 2:05 PM EST SEQUENTIAL SCREENINGS The [facility] offers sequential screenings for women who are interested in screenings for chromosomal abnormalities and certain defects during a . The sequential screen combines ultrasound and blood tests to determine the risk of chromosomal abnormalities, including Down's Syndrome (Trisomy 21) and Trisomy 18, as well as open neural tube defects including spina bifida. Ultrasound examination is performed between 11 weeks and 13 weeks gestational age. Blood tests are drawn after the ultrasound and again later in the between 15 and 21 weeks gestational age. Please let your physician know if you are interested in this testing. It will require an appointment with our greenhouse technician. This is not an ultrasound performed by a physician in our office during a routine visit. SIGNS AND SYMPTOMS OF LABOR 1. Contractions every 10 minutes or more often 2. Clear, pink, or brownish fluid (water) leaking from vagina 3. Feeling that baby is pushing down, pressure 4. Low, dull backache 5. Cramps that feel like a period 6. Cramps with or without diarrhea If you notice any of the above symptoms, contact our office at [phone] and ask to speak with a nurse. After hours, you can call doctors registry at [phone] OR call [facility] at [phone] and ask to have the doctor refrigeration plant operator paged. If you consider this an emergency, dial 9-1-2 or go to your nearest emergency department. NEED HELP? Are you dealing with a violent or abusive relationship? Are you a victim of rape or sexual assult? Call [facility] ([place]) 24 hour Crisis Hotline: 987.531.3979 or 791-788-1749. MANUAL Your Guide to a Healthy manual is now on-line. Visit [email or web address] to download your free copy documented in this encounter [facility] 2022 Miscellaneous Notes Formattin g of this note might be different from the original. SW- She reports erythema and irritation over clitoral de luna, and says she was given a cream for yeast that she has not tried yet. No other vaginitis symptoms. No new pads, detergents etc. No vb, lof. Good FM. No pain. PE: Gen- NAD, well appearing Abd- Soft, gravid, NT - Skin slightly erythematous over clitoral de luna and bilateral labia minora See flowsheet A/p 32 wk gestation - Discussed vulvar care and hygiene measures - Growth US today and final report pending - RTO 2 wks Addie Montenegro DO documented in this encounter [facility] 2022 Instructions Cathryn Trinh MA - 2022 2:00 PM EST SEQUENTIAL SCREENINGS The [facility] offers sequential screenings for women who are interested in screenings for chromosomal abnormalities and certain defects during a . The sequential screen combines ultrasound and blood tests to determine the risk of chromosomal abnormalities, including Down's Syndrome (Trisomy 21) and Trisomy 18, as well as open neural tube defects including spina bifida. Ultrasound examination is performed between 11 weeks and 13 weeks gestational age. Blood tests are drawn after the ultrasound and again later in the between 15 and 21 weeks gestational age. Please let your physician know if you are interested in this testing. It will require an appointment with our greenhouse technician. This is not an ultrasound performed by a physician in our office during a routine visit. SIGNS AND SYMPTOMS OF LABOR 1. Contractions every 10 minutes or more often 2. Clear, pink, or brownish fluid (water) leaking from vagina 3. Feeling that baby is pushing down, pressure 4. Low, dull backache 5. Cramps that feel like a period 6. Cramps with or without diarrhea If you notice any of the above symptoms, contact our office at [phone] and ask to speak with a nurse. After hours, you can call doctors registry at [phone] OR call [facility] at [phone] and ask to have the doctor refrigeration plant operator paged. If you consider this an emergency, dial 9-1-1 or go to your nearest emergency department. NEED HELP? Are you dealing with a violent or abusive relationship? Are you a victim of rape or sexual assult? Call [facility] ([place]) 24 hour Crisis Hotline: 743.928.2242 or 270-373-8850. MANUAL Your Guide to a Healthy manual is now on-line. Visit [email or web address] to download your free copy documented in this encounter [facility] 06-12-2022 Miscellaneous Notes Formattin g of this note might be different from the original. PRAVEEN-S: Tiesha Echevarria is a 16 year old female who presents at 30w0d with HAL:08/21/2022, by Last Menstrual Period for a routine visit. Good FM. Denies headache, visual changes, chest pain, shortness of breath, vaginal bleeding, leakage of fluid, or dysuria. Feeling well, no complaints. Patient was not smoking marijuana since prior to . Was using CBD gummies and did not realize it had THC. Did use though to small asleep. O: See flow sheet Gen: No apparent distress Abd: Gravid, nontender S<D, 13 lb ASSESSMENT/PLAN: 1. 30 weeks gestation of P: 1) PTL precautions reviewed and when to call 2) RTO in 2 weeks 3) Reviewed history, transfer from other [facility] midwifery group due to move. Provided information about [facility]. plan given. Info on CBE and BF. 4) Reviewed labs, 1hrGCT nml 5) Size less than dates, growth US ordered Mirian Dick APRN.CNM Medical Decision Making: Problems: Low: Acute, uncomplicated illness or injury Data: Unique source(s) for external note(s) reviewed: 1 Unique test result(s) reviewed: 3+ Unique test(s) ordered: 2 Risk: Moderate: Drug management Medical Decision Making Level: 4 - Moderate documented in this encounter [facility] 06-12-2022 Instructions Mirian Dick APRN.CNM - 06/12/2022 4:30 PM EDT 1) [facility] Online Virtual Childbirth and Class. -Please call to register and for more information: [phone] 2) [facility] Online Childbirth Education, , and classes: [email or web address] 3) Here is a list of online childbirth education and resources. https://Mailcloud/ jyvkxr-oyqhhvlknm-gcgkl-covid1 9-coronavirus/ https://evidencebasedbNetEffectth.com /childbirth-class/ https://blissful-.[employer].com/p/empoweredmamasguide SIGNS AND SYMPTOMS OF LABOR 1. Contractions every 10 minutes or more often 2. Clear, pink, or brownish fluid (water) leaking from vagina 3. Feeling that baby is pushing down, pressure 4. Low, dull backache 5. Cramps that feel like a period 6. Cramps with or without diarrhea If you notice any of the above symptoms, contact our office at [phone] and ask to speak with a nurse. After hours, you can call doctors registry at [phone] OR call [facility] at [phone] and ask to have the doctor refrigeration plant operator paged. If you consider this an emergency, dial 9- or go to your nearest emergency department. NEED HELP? Are you dealing with a violent or abusive relationship? Are you a victim of rape or sexual assult? Call [facility] ([place]) 24 hour Crisis Hotline: 878.898.2697 or 966-686-5746. MANUAL Your Guide to a Healthy manual is now on-line. Visit [email or web address] to download your free copy documented in this encounter [facility] 05-15-2022 Miscellaneous Notes Addended by: DEVI SOUZA on: 05/15/2022 04:22 PM Modules accepted: Orders documented in this encounter [facility] 05-15-2022 History of Presen t illness Narrative OB Check: Centering #2 Discussed nutrition, common discomforts, and labor questions. Good movement, no vaginal bleeding, no leaking. Pt desires full STD check due to partner having intercourse with a man. Pt states she used a marijuana gummy and needs a retest later for utox. Nausea is subsided. Needs blood drawn. Does not do well with needles as pt is on the autism spectrum. Mother with patient today. Significant history with custody as a small child. +FHTs S=Dates APos/ Rubella Non Immune Pelvic: moderate white discharge, no odor, Cervix non tender Assessment: IUP 26 weeks Plan: return in 4 weeks STD testing done today Glucose testing ordered Reviewed need for more hydration Jalyn Washington APRN.CNM documented in this encounter [facility] 05-07-2022 Miscellaneous Notes Addended by: NABILA COPPOLA on: 05/07/2022 04:31 PM Modules accepted: Orders S: feeling well, no concerns. Was able to connect with a therapist. Feeling less depressed and anxious, believes it was related to a situation she experienced with her father. She is doing much better now. Does have trouble falling asleep at night. +FM, no bleeding or cramping. O: BP 107/62 Pulse 103 Wt 146 lb (66.2 kg) LMP 11/14/2021 A / P: Diagnoses and all orders for this visit: Supervision of normal first , antepartum - GEST GLUC SCREEN, 1-HR, 50 GM, NON-FASTING; Future - CBC; Future - SYPHILIS TOTAL W/REFLEX; Future Discussed labs and when to go. +urine tox for marijuana on 04/09-pt said she took a gummy and didn't realize there was THC in the gummy. She used it only a few times for sleep. Will recheck urine tox at [place] Encouraged flu vaccine, she declined. Discussed FM, signs of PTL, director news, BF and CBE classes. She is going to centering for the rest of her . Proof of letter provided today. Discussed self help and sleep habits and suggested she try benadryl but not to be used regularly for sleep. I spent a total of 20 minutes on the date of the service which included preparing to see the patient, apro-lw-qfde patient care, completing clinical documentation, obtaining and/or reviewing separately obtained history, performing a medically appropriate examination, counseling and educating the patient/family/caregiver, and ordering medications, tests, or procedures. Lenka Au APRN.CNM Opened in error documented in this encounter [facility] 04-09-2022 Miscellaneous Notes Formattin g of this note might be different from the original. S: feeling well, no concerns. No bleeding or cramping. Doesn't think she is feeling any movement yet. O: BP 105/55 Pulse 93 Wt 142 lb (64.4 kg) LMP 11/14/2021 A / P: Diagnoses and all orders for this visit: History of marijuana use - TOX SCREEN ROUT UR Anatomy scan reviewed and WNL-girl, placenta is anterior. She is gaining weight. Discussed centering and she is interested. Hasn't seen psychiatrist yet. Pt agrees to urine toxicology today, says she hasn't been using marijuana, although there is marijuana use going on in the home. We discussed the benefits of , she is considering this. She already knows she wants to use depo provera for control after the baby is born. She may or may not pursue paternity testing, FOB is one of 2 individuals. I spent a total of 20 minutes on the date of the service which included preparing to see the patient, bxja-pi-alqj patient care, completing clinical documentation, obtaining and/or reviewing separately obtained history, performing a medically appropriate examination, counseling and educating the patient/family/caregiver, and ordering medications, tests, or procedures. Lenka Au APRN.CNM documented in this encounter [facility] 03-26-2022 History of Presen t illness Narrative Patient here for routine anatomy scan. See ultrasound report for details. Ernie Gusman MD documented in this encounter [facility] 03-12-2022 Miscellaneous Notes Addended by: NABILA COPPOLA on: 03/12/2022 04:58 PM Modules accepted: Orders S: feeling okay, nausea is better and appetite is increasing. No bleeding or cramping. Did not take zoloft because she is concerned about defects, her friend told her she took it and and it hurt her baby. Pt reports less anxiety, she did not look at the information I sent her regarding [facility] services O: BP 112/66 Pulse 74 Wt 135 lb (61.2 kg) LMP 11/14/2021 A / P: Tiesha was seen today for care. Diagnoses and all orders for this visit: Supervision of normal first , antepartum - OBSTETRIC ULTRASOUND WHI OB anatomy scan is scheduled, discussed quickening. She declines screening. Will order consult to psychiatry for pt. I spent a total of 20 minutes on the date of the service which included preparing to see the patient, uvli-hg-hlvu patient care, completing clinical documentation, obtaining and/or reviewing separately obtained history, performing a medically appropriate examination, counseling and educating the patient/family/caregiver and ordering medications, tests, or procedures. Lenka Au APRN.CNM documented in this encounter [facility] 02-12-2022 Miscellaneous Notes S: still having intermittent nausea and vomiting, feeling more depressed. Sleeping a lot, not motivated to do anything, doesn't want to eat. Not thoughts of suicide. O: BP 97/59 Pulse 68 Wt 134 lb 11.2 oz (61.1 kg) LMP 11/14/2021 A / P: Tiesha was seen today for care. Diagnoses and all orders for this visit: 12 weeks gestation of - URINE OB DIP B/O - NUCHAL TRANSLUCENCY WHI Encounter for screening for maternal depression Complaint of feeling depressed - CONSULT TO [facility]; Future Other orders - Discontinue: metoclopramide HCl (REGLAN) 10 mg tablet; Take 1 tablet by mouth every 8 hours as needed. for nausea. - sertraline (ZOLOFT) 25 mg tablet; Take one tablet by mouth once a day for 7 days, then increase to 50 mg once a day. Will try Vitamin B6 25 mg every 8 hours with 12.5 mg of unisom at bedtime. Will try boost. Pt wants medication for depression. Explained Rx for zoloft how to take and mechanism of action. Black box warning discussed, if she feels worse or suicidal needs to call for help or go to the ED. Would like a therapist. She is interesting in sequential screening, NT ordered. Labs reviewed, discussed rubella vaccine PP, GBS and prophylaxis in labor. No UTI symptoms. Medical Decision Making: Problems: Moderate: 1+ chronic illnesses with change Risk: Moderate: Drug management Medical Decision Making Level: 4 - Moderate Lenka Au APRN.CNM documented in this encounter [facility] documented as of this encounter (statuses as of 09/23/2022) [facility] History of Past illness Narrative* Problem Noted Date Resolved Date Rubella non-immune status, antepartum 02/06/2022 09/22/2022 Group B Streptococcus urinar y tract infection affecting in first trimester 01/05/2022 09/22/2022 Overview: 50,000 to < 100,000 still considered normal opal. No intervention at this time. Will need GBS prophylaxis during labor. - Serina Toribio APRN.CNM Encounter for supervision of normal in teen primigravida, antepartum 01/01/2022 09/22/2022 Generalized anxiety disorder 02/2023 documented as of this encounter (statuses as of 10/30/2022) [facility] History of Past illness Narrative* Problem Noted Date Resolved Date Rubella non-immune status, antepartum 02/06/2022 09/22/2022 Group B Streptococcus urinar y tract infection affecting in first trimester 01/05/2022 09/22/2022 Overview: 50,000 to < 100,000 still considered normal opal. No intervention at this time. Will need GBS prophylaxis during labor. - Serina Toribio APRN.CNM Encounter for supervision of normal in teen primigravida, antepartum 01/01/2022 09/22/2022 Generalized anxiety disorder 02/2023 documented as of this encounter (statuses as of 11/03/2022) [facility] History of Past illness Narrative* Problem Noted Date Diagnosed Date Resolved Date Rubella non-immune status, antepartum 02/06/2022 09/22/2022 Group B Streptococcus urinar y tract infection affecting in first trimester 01/05/2022 0 09/22/2022 Overview: 50,000 to < 100,000 still considered normal opal. No intervention at this time. Will need GBS prophylaxis during labor. - Serina Toribio APRN.CNM Encounter for supervision of normal in teen primigravida, antepartum 01/01/2022 023 Generalized anxiety disorder 09/22/2022 documented as of this encounter (statuses as of 03/18/2023) [facility] History of Past illness Narrative* Problem Noted Date Diagnosed Date Resolved Date Rubella non-immune status, antepartum 02/06/2022 09/22/2022 Group B Streptococcus urinar y tract infection affecting in first trimester 01/05/2022 0 09/22/2022 Overview: 50,000 to < 100,000 still considered normal opal. No intervention at this time. Will need GBS prophylaxis during labor. - Serina Toribio APRN.CNM Encounter for supervision of normal in teen primigravida, antepartum 01/01/2022 023 Generalized anxiety disorder 09/22/2022 documented as of this encounter (statuses as of 06/10/2023) [facility] History of Present illness Narrative* Herve Veras, - 01/29/2022 11:08 AM EDT This note was created using [employer]. Subjective Tiesha Echevarria is a 16 year old female. She comes to the clinic today accompanied by her mother whowas present for the entire office visit HPI patient is in her first trimester and has already seen the associate sales however the patient has yet to get her initial lab work done. Encouraging her to do that. Could be done today at the [facility] in [place]. The patient comes in stating that her headaches that she used to have when she was younger even in her earlier years have really flared up lately and they have occurred is much as 2 times a week. The patient says they are creating some nausea and is using Tylenol but it is not breaking them up. The patient's had no fevers or chills. And the mother has a strong family history in her past of having migraine cephalgia especially during . T he patient's eyeglasses that she wears is for myopia and a prescription is current within 2 years and she has no visual disturbances. The patient's once again had no earaches or sore throats on today's visit. Review of Systems Constitutional: Negative. HENT: Negative for congestion, dental problem, drooling, ear discharge, ear pain, facial swelling, hearing loss, mouth sores, nosebleeds, postnasal drip, rhinorrhea, sinus pressure, sinus pain, sneezing, sore throat, tinnitus and trouble swallowing. Eyes: Negative. Respiratory: Negative. Cardiovascular: Negative. Gastrointestinal: Positive for nausea. The nausea is not with all headaches but some of them are more significant or severe than others and does create but has had no emesis Patient states that she is eating well and balanced and has no particular foods that seem to precipitate cephalgia Endocrine: Negative. Genitourinary: Negative. Musculoskeletal: Negative. Allergic/Immunologic: Patient continues to have the same listing of penicillin allergy but there are no new allergens to add to her list at today's office encounter Neurological: Positive for headaches. The patient does not describe a prodrome but by her history and clinical presentation the headache type is commensurate with migrainous cephalgia Hematological: Negative. Psychiatric/Behavioral: Positive for sleep disturbance. Times the headaches will wake her in the middle of the night. Objective BP 107/66 Pulse 108 Ht 170.2 cm (5' 7 ) Wt 60.3 kg (133 lb) LMP 11/14/2021 BMI 20.83 kg/m Physical Exam Vitals and nursing note reviewed. Constitutional: General: She is not in acute distress. Appearance: Normal appearance. She is normal weight. She is not ill-appearing, toxic-appearing or diaphoretic. HENT: Head: Normocephalic and atraumatic. Jaw: No trismus, tenderness, swelling, pain on movement or malocclusion. Salivary Glands: Right salivary gland is not diffusely enlarged or tender. Left salivary gland is not diffusely enlarged or tender. Right Ear: Hearing, tympanic membrane, ear canal and external ear normal. No decreased hearing noted. No laceration, drainage, swelling or tenderness. No middle ear effusion. There is no impacted cerumen. No foreign body. No mastoid tenderness. No PE tube. No hemotympanum. Tympanic membrane is not injected, scarred, perforated, erythematous, retracted or bulging. Left Ear: Hearing, tympanic membrane, ear canal and external ear normal. No decreased hearing noted. No laceration, drainage, swelling or tenderness. No middle ear effusion. There is no impacted cerumen. No foreign body. No mastoid tenderness. No PE tube. No hemotympanum. Tympanic membrane is not injected, scarred, perforated, erythematous, retracted or bulging. Nose: Nose normal. No nasal deformity, septal deviation, signs of injury, laceration, nasal tenderness, mucosal edema, congestion or rhinorrhea. Right Nostril: No foreign body, epistaxis, septal hematoma or occlusion. Left Nostril: No foreign body, epistaxis, septal hematoma or occlusion. Right Turbinates: Not enlarged, swollen or pale. Left Turbinates: Not enlarged, swollen or pale. Right Sinus: No maxillary sinus tenderness or frontal sinus tenderness. Left Sinus: No maxillary sinus tenderness or frontal sinus tenderness. Mouth/Throat: Lips: [place]. No lesions. Mouth: Mucous membranes are moist. No oral lesions. Dentition: Normal dentition. Does not have dentures. No dental tenderness, gingival swelling, dental abscesses or gum lesions. Tongue: No lesions. Tongue does not deviate from midline. Palate: No mass and lesions. Pharynx: Oropharynx is clear. Uvula midline. No pharyngeal swelling, oropharyngeal exudate, posterior oropharyngeal erythema or uvula swelling. Tonsils: No tonsillar exudate or tonsillar abscesses. 2+ on the right. 1+ on the left. Eyes: General: No visual field deficit or scleral icterus. Right eye: No discharge. Left eye: No discharge. Extraocular Movements: Extraocular movements intact. Conjunctiva/sclera: Conjunctivae normal. Pupils: Pupils are equal, round, and reactive to light. Cardiovascular: Rate and Rhythm: Normal rate. Heart sounds: Normal heart sounds. Pulmonary: Effort: No respiratory distress. Breath sounds: No stridor. No wheezing, rhonchi or rales. Chest: Chest wall: No tenderness. Musculoskeletal: General: No swelling, tenderness, deformity or signs of injury. Right lower leg: No edema. Left lower leg: No edema. Neurological: Mental Status: She is alert and oriented to person, place, and time. Mental status is at baseline. Cranial Nerves: No cranial nerve deficit, dysarthria or facial asymmetry. Sensory: Sensation is intact. No sensory deficit. Motor: Motor function is intact. No weakness, tremor, atrophy, abnormal muscle tone, seizure activity or pronator drift. Coordination: Coordination is intact. Gait: Gait is intact. Psychiatric: Attention and Perception: Attention and perception normal. Mood and Affect: Mood and affect normal. Speech: Speech normal. Behavior: Behavior normal. Behavior is cooperative. Thought Content: Thought content normal. Cognition and Memory: Cognition normal. Cognition is not impaired. Judgment: Judgment normal. Judgment is not impulsive or inappropriate. Assessment and Plan: BP 107/66 Pulse 108 Ht 5' 7 (1.70m) Wt 133 lb (60.3kg) LMP 11/14/2021 BMI 20.83 kg/(m^2). Chart, history, and medications reviewed; discussed healthy habits and activity. Discussed well care and disease prevention/maintenance. Recommend routine dental and eye visits. Avoid tobacco and illicit drugs and EtOH. Reviewed negative attributes of substance Abuse including (Smoking) aged skin, bad teeth, risk of AR/CVA/Blood Clots/Cancer/; (Drugs) brain damage, risk of overdose/, hunger thus weight gain, poor judgement; (EtOH) poor judgment, organ failure, . ASSESSMENT/PLAN: 1. Migraine without aura and without status migrainosus, not intractable - ICD9: 346.10, ICD10: G43.009 (primary diagnosis) The patient may use Tylenol for relief versus any NSAIDs. I did recommend the initiation of Imitrex5 mg spray to be used at the first sign of headache coming on if she cannot predict that but the prescription has been provided as a helpful dj instructor or [place] 2. 11 weeks gestation of - ICD9: V22.2, ICD10: Z3A.11 -Patient will follow up with her OB physician but I reminded her to get the lab test because she needs to be sure that not only she healthy but the baby forthcoming. Herve Veras DO The above conditions, differential diagnoses, treatment plans, and significant side effects of the medications were discussed. The patient verbalizes understanding of the above assessments and treatment and she agrees to follow through. She will return to the clinic in 4 to 6 weeks, and she has been instructed to call our office if any medical issues arise in the meantime. Herve Veras DO [facility] Instructions* Patient Instructions* Herve Veras DO - 01/29/2022 11:00 AM EDT 1. Continue with your OB/ Fishing Rod Trimmer and get the baseline lab work 2. Plan on using the sumatriptan as directed; it is a nasal spray and works rather quickly 3. See again in 4 to 6 weeks for follow up if still in [place] documented in this [facility] Miscellaneous Notes* Telephone Encounter - Lidya Skinner - 01/05/2022 1:03 PM EDT Call placed to pt's only listed phone #[phone]. VM recording states phone belongs to Richard Mack. Vague VMM left asking for Tiesha to return call to office. Pt called back immediately and ID by name and . Pt reports this is her ph # but she cannot get previous timber setter's name off VM recording. Pt reports Richard Mack is a friend who gave her his old phone. Pt advised of Guero Toribio CNM message in detail. Pt reports her initial uti sxs went away after she drank cranberry juice and increased po hydrationwith water. Pt advised to call to notify if sxs return again. Message to Guero Toribio CNM. Lidya Skinner RN * Telephone Encounter - Jaquelin Gerard RN - 01/05/2022 12:04 PM EDT fowarded to pete yeung mainframe developer * Telephone Encounter - Serina Toribio APRN.CNM - 01/05/2022 9:14 AM EDT Inform client that she is GBS pos by urine culture and will need abx during labor. Her count is lowso she will not need abx now if she is asymptomatic. Please let me know if she has urinary symptoms. Serina Toribio APRN.CNM documented in this [facility]05[facility]22 History of Present illness Narrative* Lenka Au APRN.CNM - 01/01/2022 1:17 PM EDT Images from the original note were not included. INITIAL OB ASSESSMENT OB Provider: Lenka Au APRN.CNM HPI: Tiesha Echevarria is a 16 year old female here to establish Obstetrical Care. Patient'slast menstrual period was 11/14/2021. from OB Dating Form. Cycle length: was on depo provera was waiting for her period. Had a few days of light spotting on 11/14. Complaints: nausea without vomiting was unplanned but accepted. OB History T0 L0 SAB0 IAB0 Ectopic0 Multiple0 Live Births0 Prior : never History of 4th degree laceration: NA Patient's Risk Screening for delivery: Have you had a prior thomson between 20w and 36w6d?: No History of abnormal pap: No Prior treatment for cervical dysplasia: N/A. History of STDs: None Tobacco use: No Caffeine use: Yes Drug use: Yes-marijuana will not use in Alcohol use: No Multivitamin with Folic acid: No Occupation: graduating high school this month Yazdanism or heritage: No Would refuse blood transfusion if medically necessary: No BMI 22.40 kg/(m^2) Patient BMI over 30? No Marital Status:Single Partner: Name: Unsure, it can be 1 of 2. She doesn't want any of them to be in the baby's life, one is a drug user. Age: Occupation: Gender: male History of STDs: PAST MEDICAL HISTORY Diagnosis Date Generalized anxiety disorder History reviewed. No pertinent surgical history. No current outpatient medications on file prior to visit. Current Facility-Administered Medications on File Prior to Visit Medication medroxyPROGESTERone 150 mg injection (DEPO-PROVERA) Review of Systems: GENERAL: Negative for: Fever or Chills HEENT: Negative for: Headache, Impaired Vision, Ringing in Ears, Nosebleeds NECK: Negative for: Swelling, Pain, Stiffness RESPIRATORY: Negative for: Cough, Shortness of breath, Wheezing GASTROINTESTINAL: Negative for: +Heartburn, Constipation, Diarrhea, Blood in stool, Vomiting MUSCULOSKELETAL: Negative for: Muscle or joint pain, stiffness, Joint swelling NEUROLOGIC/PSYCHIATRIC: Negative for: Weakness, Paralysis, Numbness, Tingling, Tremor, +Anxiety, Depression-managing pretty well off meds. Memory loss SKIN: Negative for: Rash, Itching GENITOURINARY: Negative for: vaginal itching, vaginal discharge, hematuria or dysuria PHYSICAL EXAM: BP 100/51 Pulse 86 Ht 5' 7 (1.70m) Wt 143 lb (64.9kg) LMP 11/14/2021 BMI 22.39 kg/(m^2). GENERAL: pleasant female in no apparent distress DERMATOLOGY: Normal, without lesions, non-icteric and non-hirsute NECK: Supple, full range of motion, no adenopathy and thyroid normal CHEST: Normal inspiratory effort BREAST: soft, non-tender, symmetric, no dominant mass, normal nipple-areolar complex, no lymphadenopathy and no nipple discharge ABDOMEN: soft, non-tender and no masses NEURO: alert and oriented x3,exam grossly non-focal PELVIS: External genitalia normal without lesions. Perineal body intact. No vaginal or cervical lesions. Cervix closed. Uterus 7 week size. No adnexal masses or tenderness. Clinical Pelvimetry: Pelvimetry clinically assessed as adequate Limited OB ultrasound exam: not performed SBIRT Tiesha Echevarria was given the 4P's screening tool. Tiesha answered as follows: OB Opioid Screening - Last Recorded (since 04/06/2021) Did any of your parents have a problem with alcohol or other drug use? Yes Does your partner have a problem with alcohol or other drug use? Yes In the past, have you had difficulties in your life because of alcohol or other drugs, including prescription medications? No In the past month have you drunk any alcohol or used other drugs? No Are you taking medication for pain during the either prescribed or not? No Based on the screen and further questions, she is considered at Low risk due to:Low level of use stopped prior to or immediately upon known . One of her partners is a drug user and she planson staying away from him. She uses marijuana, but will stop Positive reinforcement of current behavior. Plan to rescreen early third trimester. Lenka Au APRN.CNM ASSESSMENT: 16 year old at 6w6d wks gestational age, approximately-had a light short period 11/14 was on depo provera and wasn't having a regular period. Teen , not sure of who the FOB is. She lives with her mother and siblings. Having nausea, with occasional vomiting. Reviewed Vitamin B6 every 8 hours with unisom at night. History of marijuana use-knows this is not good for a developing baby and hasn't used since she found out she was , she says she is not addicted and will have no trouble not using. History of anxiety and depression-never really tried meds, was going to and decided against it. Shesays she is managing pretty well currently. She is graduating from soon. PLAN: 1) Patient oriented to practice. Discussed nutrition, folic acid supplementation, dietary guidelines, exercise, smoking, alcohol, caffeine, and drug use. Discussed routine OB labs including STD/HIV. CF carrier screening discussed and accepted. 2) OB ultrasound for dating 3) Rx for PNV sent to pharmacy 4) discussed CNM care, OB call system and physician back up, centering. Follow up in 4 weeks or sooner prn. I spent a total of 45 minutes on the date of the service which included preparing to see the patient, [id number] patient care, completing clinical documentation, obtaining and/or reviewing separately obtained history, performing a medically appropriate examination, counseling and educating the pat ient/family/caregiver and ordering medications, tests, or procedures . Lenka Au APRN.CNM documented in this encounterE[facility]05-19-2022 Instructions* Patient Instructions* Lenka Au APRN.CNM - 01/01/2022 1:17 PM EDT Please select the following link to access the [facility] Your Guide to a Healthy . [email or web address] Share with Women Nausea and Vomiting During Do all women have nausea or vomiting during ? About one in 4 women have only mild nausea. Three of every 10 women have nausea that is bad enough to interfere with their daily lives. Half of all women have both nausea and vomiting during the first months of . Nausea and vomiting during tends to be the worst at 8 to 10 weeks after your last menstrual period. It usually goes away by 12 to 16 weeks after your last period. Nausea and vomiting during is often called morning sickness but can occur all day longor at any time in the day or night. What causes nausea and vomiting during ? The cause of nausea and vomiting during is not known for sure. Changes in hormone levels may be involved. If your mother had morning sickness when she was , you may be more likely to have nausea and vomiting during . A history of motion sickness or stomach problems beforeyou got may be another risk factor. Nausea during is worse if you are dehydrated (there is not enough fluid in your body) or if the level of sugar in your blood is low from not eating often enough. Are nausea and vomiting during dangerous? Mild nausea and vomiting may make you feel awful, but it will not hurt you or your baby. You can talk to your health care provider about ways to make you feel better if nausea and or vomiting is making it hard for you to do your normal activities. Lots of vomiting that keeps you from keeping any food down is rare, but severe vomiting can cause health problems. You should call your health care provider if any of the following happen: You are not able to keep any liquids or foods down for 24 hours You are vomiting several times a day or after every meal You have abdominal pain, difficulty urinating, or a fever You do not urinate as often as usual and your urine is dark in color You are weak, dizzy, or faint when you stand up You do not gain weight or you lose weight in a week How are nausea and vomiting treated? Nausea or vomiting during is treated in 3 steps: 1. Simple diet changes in what you eat and how often you eat may lessen nausea and help you avoid vomiting. This is all it takes for many women. 2. If diet changes are not enough, you can try eating amadeo or using acupressure bands. Both have been shown to decrease nausea in research studies. 3. If the nausea and/or vomiting are making it hard to do your usual activities, your health care provider can prescribe medication. Your health care provider can talk with you about how often you have nausea and are vomiting then help you decide which of the following ways to treat nausea and vomiting will be best for you. Step One: Lifestyle and Diet Changes Drink small amounts of fluids often all day long. Drinking a small amount at one time will also help the nausea lessen. Cold drinks may make you feel better than hot drinks will. Eat small meals every 2 to 3 hours. Do notwait to be hungry or thirsty before you eat or drink. Eat something plain like crackers, toast, or cereal in themorning. Some women find it helps to eat something before getting out of bed. Avoid eating foods that have strong odors. Avoid foods that are greasy, fried, spicy, or very hot. Try eating foods that are high in carbohydrates, such as potatoes, noodles, rice, or toast.AmericanCollege of [email or web address] www.[email or web address] Do not lie down right after eating. Some women say dairy products like yogurt are helpful, but this does not work for every woman. vitamins may make your nausea worse. If you take your vitamin at night or with food, it may not make you nauseated. Your provider can also help you find a vitamin that does not makeyour nausea worse. Vitamins that do not have iron in them are less likely to cause your stomach to be upset. Children s vitamins that have folic acid can also be used. If you stop taking a multivitamin, you should take one tablet of folic acid daily (0.4 mg, which is 400 micrograms per day). Folic acid tablets will not worsen nausea. Step Two: Treatments that Do Not Use Medications Amadeo Amadeo has been used for treating nausea since ancient times and can lessen nausea. Amadeo root tea, amadeo gum, amadeo snaps, amadeo syrup added to water, amadeo ayesha, and all other forms of amadeo are safe to use in . You can also buy amadeo capsules at a drug store. The dose of amadeo that has been studied for nausea and vomiting in is 1 gram per day. Some forms of amadeo like tea or cookies do not list the dose. Ask your health care provider or pharmacist how often you should take amadeo products that do not have the dose of amadeo listed. Acupressure Bands Seabands are wristbands with a pressure point placed on the inside of your wrist. They are often used for motion sickness. Some women find them helpful for nausea during , and they are safe. Step Three: Medication There are several different types of nauseamedicines that work well and are safe for you and your baby. Because nausea and vomiting is caused by different triggers in your body, you and your health care provider can work together to find the medicine that is right for you. There are both gkgf-tbr-bzocztr and prescription medicines that can be used if your nausea and vomiting are severe. Yrwk-Jmv-Jyeedkf Medication Llez-cez-uhqahjd medications for motion sickness should not be taken during unless recommended by your health care provider. Many women have found that vitamin B6 is helpful for making mildnausea better. Vitamin B6 does not help stop vomiting. Your health care provider can help you choose the dose and how often to take vitamin B6 if you want to try it. Prescription Medication If your nausea and vomiting continues after trying lifestyle and diet changes and ndzl-uvl-lixyvyl medications or you are vomiting frequently, you may need a prescription medication. There are several different prescription medicines that have been studied and found to be safe for you and your baby. Your health care provider can talk with you about these medicines. For More Information [employer] Nausea [facility] Vomiting Helpline [email or web address] documented in this encounterE[facility]05-[facility]-2022 History of Present illness Narrative* Herve Veras DO - 12/31/2021 4:16 PM EDT This note was created using [employer]. Subjective Tiesha Echevarria is a 16 year old female. The patient comes in accompanied by her mother who initially remained in the waiting room and to help the patient was seen by me and then once the discussion with the patient and I took place mother came into the room toward the end of the office visit which was the patient's wish. HPI: the patient comes in today believing that she is based on 2 home test. The patient's last menstrual period was November 14, 2021 and has not had any spotting or menstruation sincethat time. Patient denies any emesis or change in bowel habits but she sometimes feels a little bitqueasy in her stomach. The patient has had no fevers or chills and otherwise feels fine. ALLERGIES Allergen Reactions Penicillins Unknown There is no problem list on file for this patient. PAST MEDICAL HISTORY Diagnosis Date Generalized anxiety disorder No current outpatient medications on file. Current Facility-Administered Medications Medication Dose Route Frequency medroxyPROGESTERone 150 mg injection (DEPO-PROVERA) 150 mg INTRAMUSCULAR every 12 weeks No past surgical history on file. No family history on file. Social History Tobacco Use Smoking status: Never Smoker Smokeless tobacco: Never Used Vaping Use Vaping Use: Some days Substance Use Topics Alcohol use: Not on file Drug use: Yes Types: Marijuana Comment: occasionally COVID-19 VACCINE(1) Never done DTAP,TDAP,TD(1 - Tdap) Never done MENINGOCOCCAL B: Consider based on risk(1 of 2 - Risk Bexsero 2-dose series) Never done HPV VACCINE(1 - 2-dose series) Never done DEPRESSION SCREENING Never done MENINGOCOCCAL CONJUGATE(1 - 2-dose series) Never done GC (GONORRHEA) SCREENING (18-24) Never done HEPATITIS C SCREENING Never done HIV SCREENING Never done CHLAMYDIA SCREENING (18-24) Never done INFLUENZA(Season Ended) due on 04/16/2022 Review of Systems Constitutional: Negative. HENT: Negative. Eyes: Negative. Respiratory: Negative. Cardiovascular: Negative. Gastrointestinal: Negative. Endocrine: Negative. Genitourinary: Negative. Musculoskeletal: Negative. Allergic/Immunologic: Patient does have allergy to penicillins there are no new allergens to add to her list at today's office encounter Neurological: Negative. Hematological: Negative. Psychiatric/Behavioral: Negative. All other systems reviewed and are negative. Objective BP 111/62 Pulse 77 Ht 170.2 cm (5' 7 ) Wt 65.8 kg (145 lb) LMP 11/14/2021 BMI 22.71 kg/m Physical Exam Vitals and nursing note reviewed. Constitutional: General: She is not in acute distress. Appearance: Normal appearance. She is normal weight. She is not ill-appearing, toxic-appearing or diaphoretic. Pulmonary: Effort: Pulmonary effort is normal. No respiratory distress. Breath sounds: Normal breath sounds. No stridor. Abdominal: General: Abdomen is flat. There is no distension. There are no signs of injury. Palpations: Abdomen is soft. There is no hepatomegaly, splenomegaly, mass or pulsatile mass. Tenderness: There is no abdominal tenderness. There is no right CVA tenderness, left CVA tenderness, guarding or rebound. Hernia: No hernia is present. There is no hernia in the umbilical area or ventral area. Comments: The patient did not have any discomfort with abdominal examination and there is no isolated discomfort in either one of the abdominal quadrants. The patient's had no dysuria and there is no discomfort with palpation of the suprapubic area. Musculoskeletal: General: No swelling, tenderness, deformity or signs of injury. Right lower leg: No edema. Left lower leg: No edema. Skin: Capillary Refill: Capillary refill takes less than 2 seconds. Coloration: Skin is not jaundiced or pale. Findings: No bruising, erythema, lesion or rash. Neurological: General: No focal deficit present. Mental Status: She is alert and oriented to person, place, and time. Mental status is at baseline. Sensory: No sensory deficit. Coordination: Coordination normal. Gait: Gait normal. Psychiatric: Mood and Affect: Mood normal. Behavior: Behavior normal. Thought Content: Thought content normal. Judgment: Judgment normal. Assessment and Plan; BP 111/62 Pulse 77 Ht 5' 7 (1.70m) Wt 145 lb (65.8kg) LMP 11/14/2021 BMI 22.71 kg/(m^2). Chart, history, and medications reviewed; discussed healthy habits and activity. Discussed well care and disease prevention/maintenance. Recommend routine dental and eye visits. Avoid tobacco and illicit drugs and EtOH. Reviewed negative attributes of substance Abuse including (Smoking) aged skin, bad teeth, risk of AR/CVA/Blood Clots/Cancer/; (Drugs) brain damage, risk of overdose/, hunger thus weight gain, poor judgement; (EtOH) poor judgment, organ failure, . ASSESSMENT/PLAN: 1. Less than 8 weeks gestation of - ICD9: V22.2, ICD10: Z3A.01 -With the patient's permission mother was brought back into the office and a discussion ensued about the and the fact that care needs to be established since the patient and motherare in agreement about wanting to bring her baby to term. The patient is not but the fatherof the child is also in favor of the coming to term. -We had a nice discussion about diet and eating foods which are more soft and easy to digest to minimize any chance of any augmented nausea and certainly no emesis. I recommended that she drink plenty of clear fluids and of course use no recreational drugs. I also recommended no alcohol during the . - HCG QUAL UR B/O- positive in office today - CONSULT TO OBSTETRICS: Consultation has been placed for obstetrics and the electrician front will plan to arrange for visits at the [facility] since there is bruising taking place at [facility] and not at [facility]. Other feature that came up today was that the patient will besometime in January moving to [place] and if we can establish care here perhaps our machine filler shredder can recommend somebody in the [place] area where the family will be moving. Herve Veras DO The above conditions, differential diagnoses, treatment plans, and significant side effects of the medications were discussed. The patient verbalizes understanding of the above assessments and treatment and she agrees to follow through. She will return to the clinic as needed and she has been instructed to call our office if any medical issues arise in the meantime. Herve Veras DO documented in this encounterE[facility]05-18-2022 Instructions* Patient Instructions* Herve Veras DO - 12/31/2021 3:10 PM EDT 1. Congratulations- our testing today confirms your two home tests that you are approximately 6 to 7 weeks based on your last Menstrual period 2. I placed an order for you to see an OB Physician in our system documented in this encounterE[facility]* Diagnosis Less than 8 weeks gestation of - Primary state, incidental [facility] Diagnosis Encounter for supervision of normal in teen primigravida, antepartum- Primary Less than 8 weeks gestation of state, incidental Generalized anxiety disorder [facility]* Diagnosis Encounter to determine viability of , single or unspecified fetus- Primary 9 weeks gestation of state, incidental [facility]* Diagnosis Migraine without aura and without status migrainosus, not intractable- Primary Migraine without aura, without mention of intractable migraine without mention of status migrainosus 11 weeks gestation of state, incidental [facility] Diagnosis 12 weeks gestation of - Primary state, incidental Encounter for screening for maternal depression Complaint of feeling depressed [facility] Diagnosis Encounter for (NT) nuchal translucency scan- Primary Other specified screening 13 weeks gestation of state, incidental [facility]* Diagnosis Supervision of normal first , antepartum- Primary 16 weeks gestation of state, incidental [facility]* Diagnosis screening for malformation using ultrasonics- Primary Encounter for routine screening for malformation using ultrasonics 18 weeks gestation of state, incidental [facility] Diagnosis History of marijuana use- Primary [facility]* Diagnosis Supervision of normal first , antepartum- Primary 24 weeks gestation of state, incidental [facility] Diagnosis Screening examination for sexually transmitted disease- Primary Screening examination for venereal disease 26 weeks gestation of state, incidental [facility] Diagnosis 30 weeks gestation of - Primary state, incidental Uterine size-date discrepancy, third trimester [facility] Diagnosis Uterine size-date discrepancy, third trimester- Primary 32 weeks gestation of state, incidental [facility] Diagnosis 32 weeks gestation of - Primary state, incidental Supervision of normal first , antepartum [facility] Diagnosis 34 weeks gestation of - Primary state, incidental [facility] Diagnosis Supervision of normal first teen , third trimester- Primary 37 weeks gestation of state, incidental documented in this encounter [facility] note* Diagnosis 37 weeks gestation of - Primary state, incidental Supervision of normal first teen , third trimester documented in this encounter [facility] note* Diagnosis 39 weeks gestation of - Primary state, incidental documented in this encounter [facility] note* Diagnosis 2 weeks follow-up- Primary documented in this encounter [facility] note* Diagnosis care and examination- Primary Routine follow-up Bipolar depression (HCC) Bipolar I disorder, most recent episode (or current) depressed, unspecified Anxiety Anxiety state, unspecified documented in this encounter [facility] note* Diagnosis Uses Depo-Provera as primary control method- Primary Decidual cast Vaginal spotting Other specified noninflammatory disorder of vagina documented in this encounter [facility] note* Diagnosis Encounter for management and injection of depo-Provera- Primary Surveillance of other previously prescribed contraceptive method Uses Depo-Provera as primary control method documented in this encounter [facility] note* Diagnosis Nausea- Primary Nausea alone Missed menses documented in this encounter [facility] note* Diagnosis Nausea- Primary Nausea alone Missed menses documented in this encounter [facility] note* Diagnosis Encounter for management and injection of depo-Provera- Primary Surveillance of other previously prescribed contraceptive method documented in this encounter [facility] for referral (narrative)* Diagnostic Procedure Only (Routine) - Authorized Specialty Diagnoses / Procedures Referred By Sivakumar crews Referred To Contact [facility] Diagnoses 12 weeks gestation of Procedures NUCHAL TRANSLUCENCY WHI US NUCHAL TRANSLUCENCY 1ST GESTATION Lenka Au APRN.CNM [address] [place] [address] [facility] [address] [place] [address] Referral ID Status Reason Start Date Expiration Date Visits Requested Visits Authorized [id number] Authorized Auto-Generat ed Referral 02/12/2022 02/12/2023 1 1 [facility] for referral (narrative)* Diagnostic Procedure Only (Routine) - Authorized Specialty Diagnoses / Procedures Referred By Contac t Referred To Contact [facility] Diagnoses Encounter for (NT) nuchal translucency scan 13 weeks gestation of Procedures OBSTETRIC ULTRASOUND WHI US PREG UTERUS AFTER 1ST TRIMEST GESTATION Arlene Khan MD [address] [place] [address] [address] Referral ID Status Reason Start Date Expiration Date Visits Requested Visits Authorized [id number] Authorized Auto-Generat ed Referral 02/18/2022 02/18/2023 1 1 [facility] for referral (narrative)* Diagnostic Procedure Only (Routine) - Pending Review Specialty Diagnoses / Procedures Referred By Contac t Referred To Contact [facility] Diagnoses Supervision of normal first , antepartum Procedures OBSTETRIC ULTRASOUND WHI US PREG UTERUS AFTER 1ST TRIMEST GESTATION Lenka Au APRN.CNM [address] [place] [address] [address] Referral ID Status Reason Start Date Expiration Date Visits Requested Visits Authorized [id number] Pending Review Auto-Generat ed Referral 03/12/2022 03/12/2023 1 1 [facility] for referral (narrative)* Diagnostic Procedure Only (Routine) - Pending Review Specialty Diagnoses / Procedures Referred By Contac t Referred To Contact [facility] Diagnoses 26 weeks gestation of Procedures OBSTETRIC ULTRASOUND WHI US PREG UTERUS AFTER 1ST TRIMEST GESTATION Jalyn Washington APRN.CNM [address] [place] [address] [address] Referral ID Status Reason Start Date Expiration Date Visits Requested Visits Authorized [id number] Pending Review Auto-Generat ed Referral 05/15/2022 05/15/2023 1 1 [facility] for referral (narrative)* Diagnostic Procedure Only (Routine) - Authorized Specialty Diagnoses / Procedures Referred By Contac t Referred To Contact [facility] Diagnoses 30 weeks gestation of Uterine size-date discrepancy, third trimester Procedures OBSTETRIC ULTRASOUND WHI US PREG UTERUS AFTER 1ST TRIMEST GESTATION Mirian Dick APRN.CNM [address] [place] [address] [place] [id number] Referral ID Status Reason Start Date Expiration Date Visits Requested Visits Authorized [id number] Authorized Auto-Generat ed Referral 2 06/12/2023 1 1 [facility] for visit Narrative* Diagnostic Procedure Only (Routine) - Closed Specialty Diagnoses / Procedures Referred By Contac t Referred To Contact [facility] Diagnoses Encounter for (NT) nuchal translucency scan 13 weeks gestation of Procedures OBSTETRIC ULTRASOUND WHI US PREG UTERUS AFTER 1ST TRIMEST GESTATION Arlene Khan MD [address] [place] [address] [place] [id number] Referral ID Status Reason Start Date Expiration Date V isits Requested Visits Authorized [id number] Closed Auto-Generate d Referral 02/18/2022 02/18/2023 1 1 [facility] Summary Purpose Family History No Family History Records FoundNo Family History Records FoundNo Family History Records FoundNo Family History Records FoundNo Family History Records FoundNo Family History Records FoundNo Family History Records FoundNo Family History Records FoundNo Family History Records Found Advance Directives No Advanced Directives Records FoundDocuments on File Type Date Recorded Patient [employer] Person Expl anation ACP-Advance Directive ACP-Power of Control Technician Documents on File Type Date Recorded Patient [employer] Person Expl anation Advance Directives and Living Will Power of Control Technician Documents on File Type Date Recorded Patient [employer] Person Expl anation Advance Directive(s) 11/19/2021 10:47 PM Advance Directive(s) 11/10/2021 3:37 PM Advance Directive(s) 10/02/2021 11:22 PM Advance Directive(s) 09/21/2021 7:31 PM Documents on File Type Date Recorded Patient [employer] Person Expl anation Advance Directive(s) 11/19/2021 10:47 PM Advance Directive(s) 11/10/2021 3:37 PM Advance Directive(s) 10/02/2021 11:22 PM Advance Directive(s) 09/21/2021 7:31 PM Discharge Instructions * Attachments The following attachments cannot be sent through Care Everywhere. * Bruises: Teen (Chinese) documented in this encounter* Attachments The following attachments cannot be sent through Care Everywhere. * Finger: Bruises: Pediatric (Chinese) documented in this encounter Assessments Diagnosis Contusion of right lesser toe(s) w/o damage to nail, init Diagnosis Contusion of right hand including fingers, initial encounter- Primary Paresthesias in right hand Disturbance of skin sensation Reason for Referral Specialty Diagnoses / Procedures Referred By Contac t Referred To Contact Obstetrics Diagnoses Less than 8 weeks gestation of Procedures CONSULT TO OBSTETRICS OFFICE/OUTPATIENT [facility] MDM 60-74 MINUTES Herve Veras, DO [address] [place] [address] Referral ID Status Reason Start Date Expiration Date Visits Requested Visits Authorized [id number] Authorized PCP Requested Referral Auto-Generate d Referral 12/31/2021 12/31/2022 1 1 Specialty Diagnoses / Procedures Referred By Contac t Referred To Contact [facility] Diagnoses Encounter for supervision of normal in teen primigravida, antepartum Procedures CYSTIC FIBROSIS PATHOGENIC VARIANT ANALYSIS CFTR GENE ANALYSIS COMMON VARIANTS Lenka Au APRN.CN [address] [place] [address] [facility] [address] [place] [address] Referral ID Status Reason Start Date Expiration Date Visits Requested Visits Authorized [id number] Authorized PCP Requested Referral Auto-Generate d Referral 01/01/2022 04/01/2022 1 1 Specialty Diagnoses / Procedures Referred By Sivakumar crews Referred To Contact [facility] Diagnoses Less than 8 weeks gestation of Encounter for supervision of normal in teen primigravida, antepartum Procedures OBSTETRIC ULTRASOUND WHI US PREG UTERUS AFTER 1ST TRIMEST GESTATION Lenka uA APRN.VILMA [address] [place] [address] [facility] [address] [address] Referral ID Status Reason Start Date Expiration Date Visits Requested Visits Authorized [id number] Authorized Auto-Generat ed Referral 01/01/2022 01/01/2023 1 1 Health Concerns Problem Noted Date OB Reminders 01/01/2022 Problem Noted Date OB Reminders 01/01/2022 Problem Noted Date OB Reminders 01/01/2022 Problem Noted Date OB Reminders 01/01/2022 Problem Noted Date OB Reminders 01/01/2022 Problem Noted Date OB Reminders 01/01/2022 Problem Noted Date OB Reminders 01/01/2022 Problem Noted Date OB Reminders 01/01/2022 Problem Noted Date OB Reminders 01/01/2022 Problem Noted Date OB Reminders 01/01/2022 Problem Noted Date OB Reminders 01/01/2022 Problem Noted Date OB Reminders 01/01/2022 Problem Noted Date OB Reminders 01/01/2022 Problem Noted Date OB Reminders 01/01/2022 Problem Noted Date OB Reminders 01/01/2022 Problem Noted Date Diagnosed Date OB Reminders 01/01/2022 Medications Administered Section Active Administered Medications - up to 3 most recent administrations Medication Order MAR Action Action Date Dose Rate Site medroxyPROGESTERone 150 mg injection (DEPO-PROVERA) 150 mg, INTRAMUSCULAR, EVERY 12 WEEKS, 4 doses, First dose on Wed09/22/22 at 1700, Last dose on Wed06/01/23 at 1700, Hazardous Potential Reproductive Risk Drug: Use appropriate PPE. Given 09/22/2022 4:55 PM EST 150 mg Deltoid, Left Active Administered Medications - up to 3 most recent administrations Medication Order MAR Action Action Date Dose Rate Site medroxyPROGESTERone 150 mg injection (DEPO-PROVERA) 150 mg, INTRAMUSCULAR, EVERY 12 WEEKS, 4 doses, First dose on Wed09/22/22 at 1700, Last dose on Wed06/01/23 at 1700, Hazardous Potential Reproductive Risk Drug: Use appropriate PPE. Given 03/17/2023 4:17 PM EDT 150 mg Deltoid, Left Inactive Administered Medications - up to 3 most recent administrations Medication Order MAR Action Action Date Dose Rate Site medroxyPROGESTERone 150 mg injection (DEPO-PROVERA) 150 mg, INTRAMUSCULAR, EVERY 12 WEEKS, 4 doses, First dose on Wed09/22/22 at 1700, Last dose on Wed06/01/23 at 1700, Hazardous Potential Reproductive Risk Drug: Use appropriate PPE. Given 06/09/2023 4:23 PM EDT 150 mg Deltoid, Right Additional Source Comments INFORMATION SOURCE (unrecogn ized section and content) DATE CREATED AUTHOR AUTHOR'S ORGANIZ ATION 09/03/2020 [facility] DATE CREATED AUTHOR AUTHOR'S ORGANIZ ATION 12/09/2020 [facility] DATE CREATED AUTHOR AUTHOR'S ORGANIZ ATION 08/03/2021 [facility] DATE CREATED AUTHOR AUTHOR'S ORGANIZ ATION 11/11/2021 [facility] DATE CREATED AUTHOR AUTHOR'S ORGANIZ ATION 11/22/2021 [facility] DATE CREATED AUTHOR AUTHOR'S ORGANIZ ATION 12/26/2021 [facility] DATE CREATED AUTHOR AUTHOR'S ORGANIZ ATION 04/13/2023 [facility] DATE CREATED AUTHOR AUTHOR'S ORGANIZ ATION 07/15/2023 [facility] Reason for Visit (unrecogniz ed section and content) Reason Comments Hand Injury Reason Comments Follow Up Would like to have p regnancy confirmed Specialty Diagnoses / Procedures Referred By Contac t Referred To Contact Obstetrics Diagnoses Less than 8 weeks gestation of Procedures CONSULT TO OBSTETRICS OFFICE/OUTPATIENT [facility] MDM 60-74 MINUTES Herve Veras, [address] [place] [address] Referral ID Status Reason Start Date Expiration Date V isits Requested Visits Authorized [id number] Closed PCP Requested Referral Auto-Generated Referral 12/31/2021 12/31/2022 1 1 Reason Comments UTI Reason Comments US Specialty Diagnoses / Procedures Referred By Contac t Referred To Contact [facility] Diagnoses Less than 8 weeks gestation of Encounter for supervision of normal in teen primigravida, antepartum Procedures OBSTETRIC ULTRASOUND WHI US PREG UTERUS AFTER 1ST TRIMEST GESTATION Lenka Au, GUS[employer] MAKER.CNM [address] [place] [address] [address] Referral ID Status Reason Start Date Expiration Date V isits Requested Visits Authorized [id number] Closed Auto-Generate d Referral 01/01/2022 01/01/2023 1 1 Reason Comments Headaches Reason Comments Care Reason Comments US Specialty Diagnoses / Procedures Referred By Contac t Referred To Contact [facility] Diagnoses 12 weeks gestation of Procedures NUCHAL TRANSLUCENCY WHI US NUCHAL TRANSLUCENCY 1ST GESTATION Lenka Au APRN.CNM [address] [place] [address] [address] Referral ID Status Reason Start Date Expiration Date V isits Requested Visits Authorized [id number] Closed Auto-Generate d Referral 02/12/2022 02/12/2023 1 1 Reason Onset Date Comments Care 06/12/2022 Specialty Diagnoses / Procedures Referred By Contac t Referred To Contact [facility] Diagnoses 30 weeks gestation of Uterine size-date discrepancy, third trimester Procedures OBSTETRIC ULTRASOUND WHI US PREG UTERUS AFTER 1ST TRIMEST GESTATION Mirian Dick, [employer].CNM [address] [place] [address] [address] Referral ID Status Reason Start Date Expiration Date V isits Requested Visits Authorized [id number] Closed Auto-Generate d Referral 06/12/2022 06/12/2023 1 1 Reason Onset Date Comments Care 2022 Reason Onset Date Comments Care 07/13/2022 Reason Comments Results Reason Onset Date Comments Care 07/31/2022 Reason Onset Date Comments Care 08/06/2022 Reason Comments Ob Delivery Note Reason Onset Date Comments Care 08/14/2022 Reason Comments Early Reason Comments Vaginal Bleeding Reason Comments Menstrual Problem Passing large clots Reason Onset Date Comments Depo Provera Injection 03/17/2023 Reason Comments Fatigue Blood Work Possible Negative hcg at home -has doppler stating it was 130 Reason Onset Date Comments Fatigue 04/05/2023 Reason Onset Date Comments Depo Provera Injection 06/09/2023 Ordered Prescriptions (unrec ognized section and content) Source Comments (unrecognize d section and content) In the event this informatio n is protected by the Federal Confidentiality of Alcohol and Drug Abuse Patient Records regulations: The Federal rules restrict any use of the information to criminally investigate or prosecute any alcohol or drug abuse patient.[facility] the event this information is protected by the Federal Confidentiality of Alcohol and Drug Abuse Patient Records regulations: The Federal rules restrict any use of the information to criminally investigate or prosecute any alcohol or drug abuse patient.[facility] Hospital[facility] the event this information is protected by the Federal Confidentiality of Alcohol and Drug Abuse Patient Records regulations: The Federal rules restrict any use of the information to criminally investigate or prosecute any alcohol or drug abuse patient.[facility] Hospital[facility] the event this information is protected by the Federal Confidentiality of Alcohol and Drug Abuse Patient Records regulations: The Federal rules restrict any use of the information to criminally investigate or prosecute any alcohol or drug abuse patient.[facility] the event this information is protected by the Federal Confidentiality of Alcohol and Drug Abuse Patient Records regulations: The Federal rules restrict any use of the information to criminally investigate or prosecute any alcohol or drug abuse patient.[facility] the event this information is protected by the Federal Confidentiality of Alcohol and Drug Abuse Patient Records regulations: The Federal rules restrict any use of the information to criminally investigate or prosecute any alcohol or drug abuse patient.[facility] Hospital[facility] the event this information is protected by the Federal Confidentiality of Alcohol and Drug Abuse Patient Records regulations: The Federal rules restrict any use of the information to criminally investigate or prosecute any alcohol or drug abuse patient.[facility] Hospital[facility] the event this information is protected by the Federal Confidentiality of Alcohol and Drug Abuse Patient Records regulations: The Federal rules restrict any use of the information to criminally investigate or prosecute any alcohol or drug abuse patient.[facility] Hospital[facility] the event this information is protected by the Federal Confidentiality of Alcohol and Drug Abuse Patient Records regulations: The Federal rules restrict any use of the information to criminally investigate or prosecute any alcohol or drug abuse patient.[facility] Hospital[facility] the event this information is protected by the Federal Confidentiality of Alcohol and Drug Abuse Patient Records regulations: The Federal rules restrict any use of the information to criminally investigate or prosecute any alcohol or drug abuse patient.[facility] Hospital[facility] the event this information is protected by the Federal Confidentiality of Alcohol and Drug Abuse Patient Records regulations: The Federal rules restrict any use of the information to criminally investigate or prosecute any alcohol or drug abuse patient.[facility] Hospital[facility] the event this information is protected by the Federal Confidentiality of Alcohol and Drug Abuse Patient Records regulations: The Federal rules restrict any use of the information to criminally investigate or prosecute any alcohol or drug abuse patient.[facility] Hospital[facility] the event this information is protected by the Federal Confidentiality of Alcohol and Drug Abuse Patient Records regulations: The Federal rules restrict any use of the information to criminally investigate or prosecute any alcohol or drug abuse patient.[facility] Hospital[facility] the event this information is protected by the Federal Confidentiality of Alcohol and Drug Abuse Patient Records regulations: The Federal rules restrict any use of the information to criminally investigate or prosecute any alcohol or drug abuse patient.[facility] HospitalIn the event this information is protected by the Federal Confidentiality of Alcohol and Drug Abuse Patient Records regulations: The Federal rules restrict any use of the information to criminally investigate or prosecute any alcohol or drug abuse patient.[facility] HospitalIn the event this information is protected by the Federal Confidentiality of Alcohol and Drug Abuse Patient Records regulations: The Federal rules restrict any use of the information to criminally investigate or prosecute any alcohol or drug abuse patient.[facility] HospitalIn the event this information is protected by the Federal Confidentiality of Alcohol and Drug Abuse Patient Records regulations: The Federal rules restrict any use of the information to criminally investigate or prosecute any alcohol or drug abuse patient.[facility] HospitalIn the event this information is protected by the Federal Confidentiality of Alcohol and Drug Abuse Patient Records regulations: The Federal rules restrict any use of the information to criminally investigate or prosecute any alcohol or drug abuse patient.[facility] HospitalIn the event this information is protected by the Federal Confidentiality of Alcohol and Drug Abuse Patient Records regulations: The Federal rules restrict any use of the information to criminally investigate or prosecute any alcohol or drug abuse patient.[facility] HospitalIn the event this information is protected by the Federal Confidentiality of Alcohol and Drug Abuse Patient Records regulations: The Federal rules restrict any use of the information to criminally investigate or prosecute any alcohol or drug abuse patient.[facility] HospitalIn the event this information is protected by the Federal Confidentiality of Alcohol and Drug Abuse Patient Records regulations: The Federal rules restrict any use of the information to criminally investigate or prosecute any alcohol or drug abuse patient.[facility] HospitalIn the event this information is protected by the Federal Confidentiality of Alcohol and Drug Abuse Patient Records regulations: The Federal rules restrict any use of the information to criminally investigate or prosecute any alcohol or drug abuse patient.[facility] HospitalIn the event this information is protected by the Federal Confidentiality of Alcohol and Drug Abuse Patient Records regulations: The Federal rules restrict any use of the information to criminally investigate or prosecute any alcohol or drug abuse patient.[facility] HospitalIn the event this information is protected by the Federal Confidentiality of Alcohol and Drug Abuse Patient Records regulations: The Federal rules restrict any use of the information to criminally investigate or prosecute any alcohol or drug abuse patient.[facility] HospitalIn the event this information is protected by the Federal Confidentiality of Alcohol and Drug Abuse Patient Records regulations: The Federal rules restrict any use of the information to criminally investigate or prosecute any alcohol or drug abuse patient.[facility] HospitalIn the event this information is protected by the Federal Confidentiality of Alcohol and Drug Abuse Patient Records regulations: The Federal rules restrict any use of the information to criminally investigate or prosecute any alcohol or drug abuse patient.[facility] HospitalIn the event this information is protected by the Federal Confidentiality of Alcohol and Drug Abuse Patient Records regulations: The Federal rules restrict any use of the information to criminally investigate or prosecute any alcohol or drug abuse patient.[facility] Care Teams (unrecognized sec tion and content) Specialist Managers Relationship Specialty Start Date End Date Arnel Falcon MD [address] [place] [address] PCP - General 05/06/17 Specialist Managers Relationship Specialty Start Date End Date Arnel Falcon MD [address] [place] [id number] PCP - General 05/06/17 Specialist Managers Relationship Specialty Start Date End Date Arnel Falcon MD [address] [place] [id number] PCP - General 05/06/17 Specialist Managers Relationship Specialty Start Date End Date Arnel Falcon MD [address] [place] [id number] PCP - General 05/06/17 FOR RECORDS PERTAINING TO PATIENTS WHO ARE OR HAVE BEEN ENROLLED IN A CHEMICAL DEPENDENCY/SUBSTANCEABUSE PROGRAM, SOME INFORMATION MAY BE OMITTED. This clinical summary was aggregated from multiple sources. Caution should be exercised in using it in the provision of clinical care. This summary normalizes information from multiple sources, and as a consequence, information in this document may materially change the coding, format and clinical context of patient data. In addition, data may be omitted in some cases. CLINICAL DECISIONS SHOULD BE BASED ON THE PRIMARY CLINICAL RECORDS. [facility] provides no warranty or guarantee of the accuracy or completeness of information in this document.
== END 2023-05-08 12:00 | disposition home or self-care (01) ==
LOC: ED 08-18 10:18
PROVIDERS: Emergency Provider Emergency Medicine; PCP Family Medicine; Visit Provider Emergency Medicine
DX: Z00.00 Encounter for general adult medical examination without abnormal findings (principal)